=== PATIENT | male | born 1980 | race African-American/Black ===

== ENCOUNTER 2017-03-05 22:26 | Emergency (ER) | payer SELFPAY ==
[2017-03-06 00:50] LABS: BASO # 0.1 10^3/uL (0.0-0.2); BASO % 0.4 % (0.0-1.0); EOS # 0.4 10^3/uL (0.0-0.50); IMMATURE GRANULOCYTE # 0.1 10^3/uL (0-0); IMMATURE GRANULOCYTE % 0.4 % (0-0); LYMPH # 1.6 10^3/uL (1.5-4.5); LYMPH % 11.8 % (24.0-44.0); MEAN CORPUSCULAR HEMOGLOBIN 29.4 pg (27.0-33.0); MEAN CORPUSCULAR HGB CONC 33.7 g/dl (32.0-36.5); MEAN CORPUSCULAR VOLUME 87.3 fl (80.0-96.0); MONO # 1.5 10^3/uL (0.0-0.8); NEUTROPHILS # 9.7 10^3/uL (1.8-7.7); NEUTROPHILS % 73.4 % (36.0-66.0); PLATELET COUNT, AUTOMATED 283 10^3/uL (150-450); RED CELL DISTRIBUTION WIDTH 13.2 % (11.5-14.5); WHITE BLOOD COUNT 13.2 10^3/uL (4.0-10.0)
[2017-03-06 01:23] LABS: ANION GAP 8 MEQ/L (8-16); BLOOD UREA NITROGEN 10 MG/DL (7-18); CALCIUM LEVEL 8.7 MG/DL (8.5-10.1); CARBON DIOXIDE LEVEL 27 MEQ/L (21-32); CHLORIDE LEVEL 105 MEQ/L (98-107); CREATININE FOR GFR 0.91 MG/DL (0.70-1.30); GLOMERULAR FILTRATION RATE > 60.0 (>60); GLUCOSE, FASTING 115 MG/DL (70-105); POTASSIUM SERUM 3.7 MEQ/L (3.5-5.1); SODIUM LEVEL 140 MEQ/L (136-145)
[2017-03-06] MEDS: CEPHALEXIN 500 MG CAP PO ×2 (02:00→02:17)
[2017-03-06] MEDS: amLODIPine 5 MG TAB PO (02:17)
== END 2017-03-06 02:22 | disposition home or self-care (01) ==
LOC: M ED 22:26
DX: J02.0 Streptococcal pharyngitis (principal); I10 Essential (primary) hypertension
CPT/HCPCS: 82550

== ENCOUNTER 2017-03-11 13:24 | Inpatient (IN) | payer SELFPAY ==
[2017-03-11 14:11] LABS: APPEARANCE, URINE CLEAR (CLEAR); BACTERIA, URINE AUTO NEGATIVE (NEGATIVE); BILIRUBIN, URINE AUTO NEGATIVE (NEGATIVE); BLOOD, URINE BLOOD 3+ (NEGATIVE); COLOR, URINE YELLOW (YELLOW); GLUCOSE, URINE (UA) AUTO NEGATIVE (NEGATIVE); KETONE, URINE AUTO NEGATIVE (NEGATIVE); LEUKOCYTE ESTERASE, URINE AUTO NEGATIVE (NEGATIVE); NITRITE, URINE AUTO NEGATIVE (NEGATIVE); PROTEIN, URINE AUTO 2+ mg/dL (NEGATIVE); RBC, URINE AUTO 1 /HPF (0-3); SPECIFIC GRAVITY URINE AUTO 1.023 (1.002-1.035); SQUAMOUS EPITHELIAL CELL UR AU 0 /HPF (0-6); WBC, URINE AUTO 0 /HPF (0-3)
[2017-03-11] MEDS: NS 1,000 ML IV ×3 (14:15→22:11)
[2017-03-11 14:37] LABS: MYOGLOBIN SCREEN, URINE POSITIVE (NEGATIVE)
[2017-03-11 15:18] LABS: ANION GAP 4 MEQ/L (8-16); BLOOD UREA NITROGEN 11 MG/DL (7-18); CALCIUM LEVEL 8.8 MG/DL (8.5-10.1); CARBON DIOXIDE LEVEL 28 MEQ/L (21-32); CHLORIDE LEVEL 106 MEQ/L (98-107); CREATININE FOR GFR 0.67 MG/DL (0.70-1.30); GLOMERULAR FILTRATION RATE > 60.0 (>60); GLUCOSE, FASTING 99 MG/DL (70-105); SODIUM LEVEL 138 MEQ/L (136-145)
[2017-03-11 15:22] LABS: POTASSIUM SERUM 5.4 MEQ/L (3.5-5.1)
[2017-03-11 16:03] LABS: CPK CREATINE PHOSPHOKINASE 13110 U/L (39-308)
[2017-03-11 18:09] LABS: BASO % 0.2 % (0.0-1.0); EOS # 0.1 10^3/uL (0.0-0.50); EOS % 0.9 % (0.0-3.0); HEMATOCRIT 43.8 % (42.0-52.0); HEMOGLOBIN 14.4 g/dl (14.0-18.0); IMMATURE GRANULOCYTE # 0.1 10^3/uL (0-0); IMMATURE GRANULOCYTE % 0.6 % (0-0); LYMPH % 18.4 % (24.0-44.0); MEAN CORPUSCULAR HEMOGLOBIN 28.8 pg (27.0-33.0); MEAN CORPUSCULAR HGB CONC 32.9 g/dl (32.0-36.5); MEAN CORPUSCULAR VOLUME 87.6 fl (80.0-96.0); MONO % 8.9 % (0.0-5.0); NEUTROPHILS # 7.7 10^3/uL (1.8-7.7); PLATELET COUNT, AUTOMATED 355 10^3/uL (150-450); RED CELL DISTRIBUTION WIDTH 13.1 % (11.5-14.5); WHITE BLOOD COUNT 10.8 10^3/uL (4.0-10.0)
[2017-03-11 18:24] LABS: INR 0.97
[2017-03-11 18:25] LABS: PARTIAL THROMBOPLASTIN TIME 32.7 SECONDS (26.8-37.9)
[2017-03-11] MEDS ORDERED: MORPHINE 2 MG/ML 1ML SYRINGE IV (21:00)
[2017-03-11 21:21] LABS: REASON FOR REVIEW COMPREHENSIVE REVIEW; SLIDE REVIEW Report; SOURCE PERIPHERAL SMEAR
[2017-03-11 21:27] LABS: CONTROL LINE MONO INT CTR LINE PRESENT; MONO SCRN NEGATIVE (NEGATIVE)
[2017-03-11 21:27] LABS: FIBRINOGEN 410 MG/DL (221-452)
[2017-03-11 21:41] LABS: LDH LACTATE DEHYDROGENASE 1872 U/L (87-241)
[2017-03-11] MEDS: SENOKOT S TAB PO (22:09)
[2017-03-11] MEDS: CEPHALEXIN 500 MG CAP PO (22:09)
[2017-03-11] MEDS: HEPARIN SOD (PORCINE) 5000 UNITS/ML VIAL SC (22:10)
[2017-03-12] MEDS: NS 1,000 ML IV ×4 (03:15→20:09)
[2017-03-12 07:25] LABS: HEMATOCRIT 40.9 % (42.0-52.0); HEMOGLOBIN 13.4 g/dl (14.0-18.0); MEAN CORPUSCULAR HGB CONC 32.8 g/dl (32.0-36.5); MEAN CORPUSCULAR VOLUME 88.5 fl (80.0-96.0); PLATELET COUNT, AUTOMATED 329 10^3/uL (150-450); RED BLOOD COUNT 4.62 10^6/uL (4.30-6.10); RED CELL DISTRIBUTION WIDTH 13.1 % (11.5-14.5); WHITE BLOOD COUNT 10.1 10^3/uL (4.0-10.0)
[2017-03-12 07:50] LABS: ALBUMIN 3.1 GM/DL (3.2-5.2); ALBUMIN/GLOBULIN RATIO 0.82 (1.00-1.93); ALKALINE PHOSPHATASE 63 U/L (45-117); ALT/SGPT 185 U/L (12-78); ANION GAP 5 MEQ/L (8-16); AST/SGOT 445 U/L (7-37); BILIRUBIN,TOTAL 0.4 MG/DL (0.2-1.0); BLOOD UREA NITROGEN 8 MG/DL (7-18); CALCIUM LEVEL 8.1 MG/DL (8.5-10.1); CARBON DIOXIDE LEVEL 30 MEQ/L (21-32); CHLORIDE LEVEL 105 MEQ/L (98-107); CREATININE FOR GFR 0.63 MG/DL (0.70-1.30); GLOMERULAR FILTRATION RATE > 60.0 (>60); GLUCOSE, FASTING 112 MG/DL (70-105); MAGNESIUM LEVEL 2.2 MG/DL (1.8-2.4); POTASSIUM SERUM 4.7 MEQ/L (3.5-5.1); SODIUM LEVEL 140 MEQ/L (136-145); TOTAL PROTEIN 6.9 GM/DL (6.4-8.2)
[2017-03-12] MEDS: CEPHALEXIN 500 MG CAP PO ×2 (08:31→20:09)
[2017-03-12] MEDS: SENOKOT S TAB PO ×2 (08:31→20:01)
[2017-03-12] MEDS: HEPARIN SOD (PORCINE) 5000 UNITS/ML VIAL SC ×2 (08:32→20:09)
[2017-03-12 11:42] LABS: CPK CREATINE PHOSPHOKINASE 95400 U/L (39-308)
[2017-03-12] MEDS: amLODIPine 5 MG TAB PO (16:16)
[2017-03-12 19:05] LABS: POTASSIUM SERUM 4.2 MEQ/L (3.5-5.1)
[2017-03-12 22:05] LABS: CPK CREATINE PHOSPHOKINASE 94182 U/L (39-308)
[2017-03-13] MEDS: NS 1,000 ML IV ×5 (01:16→17:35)
[2017-03-13 06:16] LABS: HEMOGLOBIN 13.4 g/dl (14.0-18.0); MEAN CORPUSCULAR HEMOGLOBIN 29.1 pg (27.0-33.0); MEAN CORPUSCULAR HGB CONC 33.5 g/dl (32.0-36.5); PLATELET COUNT, AUTOMATED 325 10^3/uL (150-450)
[2017-03-13 07:17] LABS: ALKALINE PHOSPHATASE 57 U/L (45-117); ALT/SGPT 183 U/L (12-78); AST/SGOT 323 U/L (7-37); BILIRUBIN,TOTAL 0.3 MG/DL (0.2-1.0); BLOOD UREA NITROGEN 8 MG/DL (7-18); CALCIUM LEVEL 8.3 MG/DL (8.5-10.1); CARBON DIOXIDE LEVEL 26 MEQ/L (21-32); CHLORIDE LEVEL 106 MEQ/L (98-107); CREATININE FOR GFR 0.61 MG/DL (0.70-1.30); GLUCOSE, FASTING 111 MG/DL (70-105); MAGNESIUM LEVEL 2.1 MG/DL (1.8-2.4); POTASSIUM SERUM 4.4 MEQ/L (3.5-5.1); SODIUM LEVEL 140 MEQ/L (136-145); TOTAL PROTEIN 6.8 GM/DL (6.4-8.2)
[2017-03-13] MEDS: SENOKOT S TAB PO ×2 (07:32→20:00)
[2017-03-13 07:39] LABS: CPK CREATINE PHOSPHOKINASE 77825 U/L (39-308)
[2017-03-13 08:07] LABS: HAPTOGLOBIN 187 mg/dL (34-200)
[2017-03-13] MEDS: CEPHALEXIN 500 MG CAP PO ×2 (10:05→20:36)
[2017-03-13] MEDS: amLODIPine 5 MG TAB PO (10:07)
[2017-03-13] MEDS: HEPARIN SOD (PORCINE) 5000 UNITS/ML VIAL SC ×2 (10:07→20:36)
[2017-03-13 14:20] LABS: ANION GAP 8 MEQ/L (8-16)
[2017-03-13 14:21] LABS: ALBUMIN/GLOBULIN RATIO 0.79 (1.00-1.93)
[2017-03-13] MEDS: ACETAMINOPHEN TAB 650MG DOSE (2X325MG) PO (18:39)
[2017-03-13 18:40] LABS: POTASSIUM SERUM 4.5 MEQ/L (3.5-5.1)
[2017-03-13 21:25] LABS: CPK CREATINE PHOSPHOKINASE 48658 U/L (39-308)
[2017-03-14 06:14] LABS: HEMOGLOBIN 13.8 g/dl (14.0-18.0); MEAN CORPUSCULAR HEMOGLOBIN 29.1 pg (27.0-33.0); MEAN CORPUSCULAR HGB CONC 33.7 g/dl (32.0-36.5); MEAN CORPUSCULAR VOLUME 86.5 fl (80.0-96.0); PLATELET COUNT, AUTOMATED 345 10^3/uL (150-450); RED BLOOD COUNT 4.74 10^6/uL (4.30-6.10); RED CELL DISTRIBUTION WIDTH 12.8 % (11.5-14.5); WHITE BLOOD COUNT 10.8 10^3/uL (4.0-10.0)
[2017-03-14] MEDS: NS 1,000 ML IV ×4 (06:41→20:29)
[2017-03-14 06:54] LABS: ALBUMIN 3.2 GM/DL (3.2-5.2); ALBUMIN/GLOBULIN RATIO 0.82 (1.00-1.93); ALKALINE PHOSPHATASE 67 U/L (45-117); ALT/SGPT 181 U/L (12-78); ANION GAP 7 MEQ/L (8-16); AST/SGOT 211 U/L (7-37); BILIRUBIN,TOTAL 0.3 MG/DL (0.2-1.0); BLOOD UREA NITROGEN 9 MG/DL (7-18); CALCIUM LEVEL 7.9 MG/DL (8.5-10.1); CARBON DIOXIDE LEVEL 27 MEQ/L (21-32); CHLORIDE LEVEL 105 MEQ/L (98-107); CREATININE FOR GFR 0.65 MG/DL (0.70-1.30); GLOMERULAR FILTRATION RATE > 60.0 (>60); GLUCOSE, FASTING 135 MG/DL (70-105); MAGNESIUM LEVEL 2.1 MG/DL (1.8-2.4); POTASSIUM SERUM 4.1 MEQ/L (3.5-5.1); SODIUM LEVEL 139 MEQ/L (136-145); TOTAL PROTEIN 7.1 GM/DL (6.4-8.2)
[2017-03-14 07:28] LABS: CPK CREATINE PHOSPHOKINASE 29875 U/L (39-308)
[2017-03-14] MEDS: CEPHALEXIN 500 MG CAP PO ×2 (08:05→20:27)
[2017-03-14] MEDS: amLODIPine 5 MG TAB PO (08:05)
[2017-03-14] MEDS: SENOKOT S TAB PO ×2 (08:06→20:28)
[2017-03-14] MEDS: HEPARIN SOD (PORCINE) 5000 UNITS/ML VIAL SC ×2 (08:06→20:29)
[2017-03-15] MEDS: NS 1,000 ML IV ×4 (04:15→21:08)
[2017-03-15 06:18] LABS: HEMATOCRIT 39.4 % (42.0-52.0); MEAN CORPUSCULAR HEMOGLOBIN 28.8 pg (27.0-33.0); MEAN CORPUSCULAR VOLUME 87.2 fl (80.0-96.0); PLATELET COUNT, AUTOMATED 325 10^3/uL (150-450); RED BLOOD COUNT 4.52 10^6/uL (4.30-6.10); RED CELL DISTRIBUTION WIDTH 12.8 % (11.5-14.5); WHITE BLOOD COUNT 10.5 10^3/uL (4.0-10.0)
[2017-03-15 06:59] LABS: ALBUMIN 3.2 GM/DL (3.2-5.2); ALBUMIN/GLOBULIN RATIO 0.89 (1.00-1.93); ALKALINE PHOSPHATASE 65 U/L (45-117); ALT/SGPT 181 U/L (12-78); ANION GAP 8 MEQ/L (8-16); AST/SGOT 136 U/L (7-37); BILIRUBIN,TOTAL 0.2 MG/DL (0.2-1.0); BLOOD UREA NITROGEN 12 MG/DL (7-18); CALCIUM LEVEL 8.3 MG/DL (8.5-10.1); CARBON DIOXIDE LEVEL 27 MEQ/L (21-32); CHLORIDE LEVEL 105 MEQ/L (98-107); CPK CREATINE PHOSPHOKINASE 13273 U/L (39-308); CREATININE FOR GFR 0.65 MG/DL (0.70-1.30); GLOMERULAR FILTRATION RATE > 60.0 (>60); GLUCOSE, FASTING 132 MG/DL (70-105); POTASSIUM SERUM 3.8 MEQ/L (3.5-5.1); SODIUM LEVEL 140 MEQ/L (136-145); TOTAL PROTEIN 6.8 GM/DL (6.4-8.2)
[2017-03-15] MEDS: SENOKOT S TAB PO ×2 (07:37→21:00)
[2017-03-15] MEDS: HEPARIN SOD (PORCINE) 5000 UNITS/ML VIAL SC ×2 (07:38→21:00)
[2017-03-15] MEDS: CEPHALEXIN 500 MG CAP PO ×2 (09:27→21:06)
[2017-03-15] MEDS: amLODIPine 5 MG TAB PO (09:27)
[2017-03-16 06:19] LABS: HEMATOCRIT 40.2 % (42.0-52.0); HEMOGLOBIN 13.4 g/dl (14.0-18.0); MEAN CORPUSCULAR HGB CONC 33.3 g/dl (32.0-36.5); PLATELET COUNT, AUTOMATED 313 10^3/uL (150-450); RED BLOOD COUNT 4.62 10^6/uL (4.30-6.10); RED CELL DISTRIBUTION WIDTH 13.1 % (11.5-14.5); WHITE BLOOD COUNT 11.3 10^3/uL (4.0-10.0)
[2017-03-16 06:54] LABS: ALBUMIN 3.3 GM/DL (3.2-5.2); ALBUMIN/GLOBULIN RATIO 0.87 (1.00-1.93); ALKALINE PHOSPHATASE 61 U/L (45-117); ALT/SGPT 180 U/L (12-78); ANION GAP 7 MEQ/L (8-16); AST/SGOT 104 U/L (7-37); BILIRUBIN,TOTAL 0.3 MG/DL (0.2-1.0); BLOOD UREA NITROGEN 13 MG/DL (7-18); CALCIUM LEVEL 8.3 MG/DL (8.5-10.1); CARBON DIOXIDE LEVEL 27 MEQ/L (21-32); CHLORIDE LEVEL 107 MEQ/L (98-107); CPK CREATINE PHOSPHOKINASE 6899 U/L (39-308); CREATININE FOR GFR 0.63 MG/DL (0.70-1.30); GLOMERULAR FILTRATION RATE > 60.0 (>60); GLUCOSE, FASTING 111 MG/DL (70-105); MAGNESIUM LEVEL 2.2 MG/DL (1.8-2.4); SODIUM LEVEL 141 MEQ/L (136-145); TOTAL PROTEIN 7.1 GM/DL (6.4-8.2)
[2017-03-16] MEDS: SENOKOT S TAB PO ×2 (08:51→21:00)
[2017-03-16] MEDS: amLODIPine 5 MG TAB PO (08:51)
[2017-03-16] MEDS: CEPHALEXIN 500 MG CAP PO ×2 (08:51→21:39)
[2017-03-16] MEDS: HEPARIN SOD (PORCINE) 5000 UNITS/ML VIAL SC ×2 (08:52→21:00)
[2017-03-17 05:41] LABS: HEMATOCRIT 40.3 % (42.0-52.0); HEMOGLOBIN 13.5 g/dl (14.0-18.0); MEAN CORPUSCULAR HEMOGLOBIN 29.3 pg (27.0-33.0); MEAN CORPUSCULAR HGB CONC 33.5 g/dl (32.0-36.5); MEAN CORPUSCULAR VOLUME 87.4 fl (80.0-96.0); PLATELET COUNT, AUTOMATED 315 10^3/uL (150-450); RED BLOOD COUNT 4.61 10^6/uL (4.30-6.10); RED CELL DISTRIBUTION WIDTH 13.1 % (11.5-14.5); WHITE BLOOD COUNT 10.9 10^3/uL (4.0-10.0)
[2017-03-17 06:16] LABS: ALBUMIN 3.2 GM/DL (3.2-5.2); ALBUMIN/GLOBULIN RATIO 0.78 (1.00-1.93); ALKALINE PHOSPHATASE 64 U/L (45-117); ALT/SGPT 174 U/L (12-78); ANION GAP 7 MEQ/L (8-16); AST/SGOT 84 U/L (7-37); BILIRUBIN,TOTAL 0.4 MG/DL (0.2-1.0); BLOOD UREA NITROGEN 11 MG/DL (7-18); CALCIUM LEVEL 8.1 MG/DL (8.5-10.1); CARBON DIOXIDE LEVEL 28 MEQ/L (21-32); CHLORIDE LEVEL 106 MEQ/L (98-107); CPK CREATINE PHOSPHOKINASE 4641 U/L (39-308); CREATININE FOR GFR 0.72 MG/DL (0.70-1.30); GLOMERULAR FILTRATION RATE > 60.0 (>60); GLUCOSE, FASTING 115 MG/DL (70-105); MAGNESIUM LEVEL 2.2 MG/DL (1.8-2.4); POTASSIUM SERUM 4.4 MEQ/L (3.5-5.1); SODIUM LEVEL 141 MEQ/L (136-145); TOTAL PROTEIN 7.3 GM/DL (6.4-8.2)
[2017-03-17 07:13] LABS: FREE THYROXINE INDEX 3.9 % (1.4-3.8); T UPTAKE 36 % (33-40); THYROXINE (T4) 10.7 UG/DL (4.5-12.0)
[2017-03-17] MEDS: HEPARIN SOD (PORCINE) 5000 UNITS/ML VIAL SC (09:00)
[2017-03-17] MEDS: SENOKOT S TAB PO (09:00)
[2017-03-17] MEDS: amLODIPine 5 MG TAB PO (09:53)
== END 2017-03-17 10:14 | disposition home or self-care (01) | DRG 351 ==
LOC: M MSPAV 03-12 15:55 → M ED 13:24 → M ED INP 20:58
DX: M62.82 Rhabdomyolysis (principal); E87.5 Hyperkalemia; I10 Essential (primary) hypertension; E66.9 Obesity, unspecified; J02.0 Streptococcal pharyngitis; Z79.899 Other long term (current) drug therapy

== ENCOUNTER 2017-04-20 17:31 | Emergency (ER) | payer SELFPAY ==
[2017-04-20] MEDS: BENZONATATE 100 MG CAP PO (20:03)
== END 2017-04-20 20:10 | disposition home or self-care (01) ==
LOC: M ED 17:31
DX: J02.8 Acute pharyngitis due to other specified organisms (principal); I10 Essential (primary) hypertension
CPT/HCPCS: 87880

== ENCOUNTER 2017-11-18 20:37 | Inpatient (IN) | payer OTHER, SELFPAY ==
[2017-11-18] MEDS: NS 1,000 ML IV ×2 (21:29→23:38)
[2017-11-18 21:36] LABS: BASO % 0.2 % (0.0-1.0); EOS # 0.1 10^3/uL (0.0-0.50); EOS % 0.9 % (0.0-3.0); HEMATOCRIT 39.6 % (42.0-52.0); HEMOGLOBIN 13.1 g/dl (13.5-17.5); IMMATURE GRANULOCYTE % 0.3 % (0-3.0); LYMPH # 2.3 10^3/uL (1.5-4.5); MEAN CORPUSCULAR HEMOGLOBIN 29.4 pg (27.0-33.0); MEAN CORPUSCULAR HGB CONC 33.1 g/dl (32.0-36.5); MONO # 1.2 10^3/uL (0.0-0.8); MONO % 9.2 % (0.0-5.0); NEUTROPHILS # 9.2 10^3/uL (1.8-7.7); NEUTROPHILS % 71.4 % (36.0-66.0); PLATELET COUNT, AUTOMATED 331 10^3/uL (150-450); RED BLOOD COUNT 4.45 10^6/uL (4.30-6.10); RED CELL DISTRIBUTION WIDTH 12.6 % (11.5-14.5); WHITE BLOOD COUNT 12.9 10^3/uL (4.0-10.0)
[2017-11-18 21:51] LABS: APPEARANCE, URINE CLEAR (CLEAR); BACTERIA, URINE AUTO NEGATIVE (NEGATIVE); BILIRUBIN, URINE AUTO NEGATIVE (NEGATIVE); BLOOD, URINE BLOOD 3+ (NEGATIVE); COLOR, URINE YELLOW (YELLOW); GLUCOSE, URINE (UA) AUTO NEGATIVE (NEGATIVE); KETONE, URINE AUTO NEGATIVE (NEGATIVE); LEUKOCYTE ESTERASE, URINE AUTO NEGATIVE (NEGATIVE); NITRITE, URINE AUTO NEGATIVE (NEGATIVE); PROTEIN, URINE AUTO 2+ mg/dL (NEGATIVE); RBC, URINE AUTO 1 /HPF (0-3); SPECIFIC GRAVITY URINE AUTO 1.015 (1.002-1.035); SQUAMOUS EPITHELIAL CELL UR AU 0 /HPF (0-6); UROBILINOGEN, URINE AUTO 0.2 mg/dL (0.0-2.0); WBC, URINE AUTO 1 /HPF (0-3)
[2017-11-18 23:20] LABS: ANION GAP 7 MEQ/L (8-16); BLOOD UREA NITROGEN 10 MG/DL (7-18); CALCIUM LEVEL 8.7 MG/DL (8.5-10.1); CARBON DIOXIDE LEVEL 29 MEQ/L (21-32); CHLORIDE LEVEL 106 MEQ/L (98-107); CPK CREATINE PHOSPHOKINASE 95114 U/L (39-308); CREATININE FOR GFR 1.03 MG/DL (0.70-1.30); GLOMERULAR FILTRATION RATE > 60.0 (>60); GLUCOSE, FASTING 95 MG/DL (70-100); POTASSIUM SERUM 3.9 MEQ/L (3.5-5.1); SODIUM LEVEL 142 MEQ/L (136-145)
[2017-11-19] MEDS: NS 1,000 ML IV ×5 (00:29→20:20)
[2017-11-19 00:47] LABS: FREE T4 1.24 NG/DL (0.76-1.46); THYROID STIMULATING HORMONE 0.905 uIU/ML (0.358-3.740)
[2017-11-19] MEDS: ENOXAPARIN 40 MG/0.4 ML SYRINGE (J1650) SC (09:00)
[2017-11-19] MEDS ORDERED: BENZONATATE 100 MG CAP PO (16:30)
[2017-11-19] MEDS: amLODIPine 10 MG TAB PO (18:12)
[2017-11-19] MEDS: BENZONATATE 100 MG CAP PO (18:12)
[2017-11-19 18:17] LABS: CPK CREATINE PHOSPHOKINASE 41700 U/L (39-308)
[2017-11-20] MEDS: NS 1,000 ML IV ×4 (01:15→21:00)
[2017-11-20 07:50] LABS: HEMATOCRIT 41.6 % (42.0-52.0); HEMOGLOBIN 13.7 g/dl (13.5-17.5); MEAN CORPUSCULAR HEMOGLOBIN 29.1 pg (27.0-33.0); MEAN CORPUSCULAR HGB CONC 32.9 g/dl (32.0-36.5); MEAN CORPUSCULAR VOLUME 88.5 fl (80.0-96.0); PLATELET COUNT, AUTOMATED 323 10^3/uL (150-450); RED CELL DISTRIBUTION WIDTH 12.7 % (11.5-14.5); WHITE BLOOD COUNT 10.1 10^3/uL (4.0-10.0)
[2017-11-20] MEDS: BENZONATATE 100 MG CAP PO (09:15)
[2017-11-20] MEDS: amLODIPine 10 MG TAB PO (09:15)
[2017-11-20] MEDS: ENOXAPARIN 40 MG/0.4 ML SYRINGE (J1650) SC (09:15)
[2017-11-20 09:58] LABS: ALBUMIN 3.4 GM/DL (3.2-5.2); ALBUMIN/GLOBULIN RATIO 0.83 (1.00-1.93); ALKALINE PHOSPHATASE 65 U/L (45-117); ALT/SGPT 115 U/L (12-78); ANION GAP 7 MEQ/L (8-16); AST/SGOT 277 U/L (7-37); BILIRUBIN,TOTAL 0.4 MG/DL (0.2-1.0); BLOOD UREA NITROGEN 6 MG/DL (7-18); CALCIUM LEVEL 8.5 MG/DL (8.5-10.1); CARBON DIOXIDE LEVEL 27 MEQ/L (21-32); CHLORIDE LEVEL 108 MEQ/L (98-107); CPK CREATINE PHOSPHOKINASE 62200 U/L (39-308); CREATININE FOR GFR 0.68 MG/DL (0.70-1.30); GLOMERULAR FILTRATION RATE > 60.0 (>60); GLUCOSE, FASTING 109 MG/DL (70-100); POTASSIUM SERUM 4.1 MEQ/L (3.5-5.1); SODIUM LEVEL 142 MEQ/L (136-145); TOTAL PROTEIN 7.5 GM/DL (6.4-8.2)
[2017-11-20] MEDS: ACETAMINOPHEN 500 MG TAB PO (10:58)
[2017-11-20 14:17] LABS: ALDOLASE 1.9 U/L (3.3-10.3)
[2017-11-21] MEDS: NS 1,000 ML IV (05:35)
[2017-11-21 07:56] LABS: HEMOGLOBIN 14.2 g/dl (13.5-17.5); MEAN CORPUSCULAR HEMOGLOBIN 29.5 pg (27.0-33.0); MEAN CORPUSCULAR VOLUME 89.4 fl (80.0-96.0); PLATELET COUNT, AUTOMATED 324 10^3/uL (150-450); RED BLOOD COUNT 4.81 10^6/uL (4.30-6.10); RED CELL DISTRIBUTION WIDTH 12.8 % (11.5-14.5); WHITE BLOOD COUNT 10.6 10^3/uL (4.0-10.0)
[2017-11-21] MEDS: ENOXAPARIN 40 MG/0.4 ML SYRINGE (J1650) SC (08:39)
[2017-11-21] MEDS: amLODIPine 10 MG TAB PO (08:42)
[2017-11-21] MEDS: BENZONATATE 100 MG CAP PO (08:46)
[2017-11-21 10:50] LABS: ALBUMIN 3.2 GM/DL (3.2-5.2); ALBUMIN/GLOBULIN RATIO 0.76 (1.00-1.93); ALKALINE PHOSPHATASE 67 U/L (45-117); ALT/SGPT 120 U/L (12-78); ANION GAP 8 MEQ/L (8-16); AST/SGOT 207 U/L (7-37); BILIRUBIN,TOTAL 0.2 MG/DL (0.2-1.0); BLOOD UREA NITROGEN 7 MG/DL (7-18); CALCIUM LEVEL 8.4 MG/DL (8.5-10.1); CARBON DIOXIDE LEVEL 25 MEQ/L (21-32); CHLORIDE LEVEL 107 MEQ/L (98-107); CPK CREATINE PHOSPHOKINASE 49796 U/L (39-308); CREATININE FOR GFR 0.69 MG/DL (0.70-1.30); GLOMERULAR FILTRATION RATE > 60.0 (>60); GLUCOSE, FASTING 107 MG/DL (70-100); POTASSIUM SERUM 4.3 MEQ/L (3.5-5.1); SODIUM LEVEL 140 MEQ/L (136-145); TOTAL PROTEIN 7.4 GM/DL (6.4-8.2)
[2017-11-21 14:14] LABS: MYOGLOBIN URINE QUANTITATIVE 314 ng/mL (0-13)
== END 2017-11-21 18:24 | disposition home or self-care (01) | DRG 58 ==
LOC: M ED INP 11-19 00:18 → M ED 20:37 → M PED 11-19 01:04
PROVIDERS: Internal Medicine
DX: G72.89 Other specified myopathies (principal); I10 Essential (primary) hypertension; E02 Subclinical iodine-deficiency hypothyroidism; F17.220 Nicotine dependence, chewing tobacco, uncomplicated

== ENCOUNTER 2018-08-21 11:08 | Emergency (ER) | payer OTHER ==
[~2018-08-21] VITALS: Ht 172.7 cm; Wt 102.3 kg
[~2018-08-21 11:08] MED LIST: AMLO10TA5 PO; AMLO5TAB6 PO; BENZ-18 PO; CEPH500C PO; KEFL500C17 PO; NORV5TAB PO; PROAAER10 INH; TESS100C PO
[2018-08-21] MEDS ORDERED: AMLO10TA5 PO (11:30)
[2018-08-21 11:42] VITALS: BP 136/85
== END 2018-08-21 11:44 | disposition home or self-care (01) ==
LOC: M ED 11:08
DX: J02.8 Acute pharyngitis due to other specified organisms (principal); I10 Essential (primary) hypertension; Z20.828 Contact with and (suspected) exposure to other viral communicable diseases; G43.909 Migraine, unspecified, not intractable, without status migrainosus; F17.220 Nicotine dependence, chewing tobacco, uncomplicated; Z79.899 Other long term (current) drug therapy

== ENCOUNTER → 2018-09-22 | Outpatient (REF) | payer OTHER, MEDICAID ==
[2018-09-22 13:48] LABS: BASO % 0.6 % (0.0-1.0); EOS # 0.1 10^3/uL (0.0-0.50); EOS % 1.9 % (0.0-3.0); HEMATOCRIT 42.4 % (42.0-52.0); HEMOGLOBIN 13.6 g/dl (13.5-17.5); MEAN CORPUSCULAR HEMOGLOBIN 29.6 pg (27.0-33.0); MEAN CORPUSCULAR HGB CONC 32.1 g/dl (32.0-36.5); MEAN CORPUSCULAR VOLUME 92.2 fl (80.0-96.0); MONO # 0.6 10^3/uL (0.0-0.8); MONO % 9.1 % (0.0-5.0); NEUTROPHILS # 3.6 10^3/uL (1.8-7.7); NEUTROPHILS % 57.2 % (36.0-66.0); PLATELET COUNT, AUTOMATED 255 10^3/uL (150-450); WHITE BLOOD COUNT 6.4 10^3/uL (4.0-10.0)
[2018-09-22 14:08] LABS: HEMOGLOBIN A1c 6.4 %
[2018-09-22 14:13] LABS: ALBUMIN 4.1 GM/DL (3.2-5.2); ALT/SGPT 26 U/L (12-78); BILIRUBIN,TOTAL 0.3 MG/DL (0.2-1.0); BLOOD UREA NITROGEN 13 MG/DL (7-18); CALCIUM LEVEL 9.5 MG/DL (8.5-10.1); CARBON DIOXIDE LEVEL 29 MEQ/L (21-32); CHLORIDE LEVEL 108 MEQ/L (98-107); CHOLESTEROL LEVEL 167 MG/DL (<200); CHOLESTEROL RISK RATIO 5.964 (<5); CREATININE FOR GFR 0.96 MG/DL (0.70-1.30); FREE T4 1.21 NG/DL (0.76-1.46); GLOMERULAR FILTRATION RATE > 60.0 (>60); GLUCOSE, FASTING 115 MG/DL (70-100); HDL CHOLESTEROL 28 MG/DL (>40); LDL CHOLESTEROL 63 MG/DL (<100); NON-HDL-C 139 MG/DL; POTASSIUM SERUM 4.2 MEQ/L (3.5-5.1); SODIUM LEVEL 144 MEQ/L (136-145); TOTAL 25(OH) VITAMIN D 19.5 NG/ML (30.0-100.0); TOTAL PROTEIN 7.2 GM/DL (6.4-8.2); TRIGLYCERIDES LEVEL 378 MG/DL (<150)
== END ==
LOC: M LAB REF 13:13
PROVIDERS: ATTEND Nurse Practitioner Family
DX: Z13.9 Encounter for screening, unspecified (principal)

== ENCOUNTER → 2019-03-19 | Outpatient (REF) | payer OTHER, MEDICAID ==
[2019-03-19 18:14] LABS: BASO % 0.6 % (0.0-1.0); EOS # 0.1 10^3/uL (0.0-0.5); EOS % 1.4 % (0.0-3.0); HEMATOCRIT 41.4 % (42.0-52.0); HEMOGLOBIN 13.4 g/dl (13.5-17.5); LYMPH # 1.7 10^3/uL (1.5-5.0); LYMPH % 23.9 % (24.0-44.0); MEAN CORPUSCULAR HEMOGLOBIN 29.6 pg (27.0-33.0); MEAN CORPUSCULAR HGB CONC 32.4 g/dl (32.0-36.5); MEAN CORPUSCULAR VOLUME 91.4 fl (80.0-96.0); MONO # 0.7 10^3/uL (0.0-0.8); MONO % 10.3 % (0.0-5.0); NEUTROPHILS # 4.6 10^3/uL (1.5-8.5); NEUTROPHILS % 63.5 % (36.0-66.0); PLATELET COUNT, AUTOMATED 287 10^3/uL (150-450); RED BLOOD COUNT 4.53 10^6/uL (4.30-6.10); WHITE BLOOD COUNT 7.2 10^3/uL (4.0-10.0)
[2019-03-19 18:23] LABS: ALT/SGPT 30 U/L (12-78); BILIRUBIN,TOTAL 0.4 MG/DL (0.2-1.0); BLOOD UREA NITROGEN 13 MG/DL (7-18); CALCIUM LEVEL 8.8 MG/DL (8.5-10.1); CARBON DIOXIDE LEVEL 27 MEQ/L (21-32); CHLORIDE LEVEL 106 MEQ/L (98-107); CHOLESTEROL LEVEL 169 MG/DL (<200); CHOLESTEROL RISK RATIO 7.347 (<5); CREATININE FOR GFR 0.89 MG/DL (0.70-1.30); GLOMERULAR FILTRATION RATE > 60.0 (>60); GLUCOSE, FASTING 119 MG/DL (70-100); HDL CHOLESTEROL 23 MG/DL (>40); NON-HDL-C 146 MG/DL; POTASSIUM SERUM 4.5 MEQ/L (3.5-5.1); SODIUM LEVEL 139 MEQ/L (136-145); TOTAL PROTEIN 7.5 GM/DL (6.4-8.2); TRIGLYCERIDES LEVEL 491 MG/DL (<150)
[2019-03-19 18:29] LABS: HEMOGLOBIN A1c 6.5 %
== END ==
LOC: M LAB REF 16:41
PROVIDERS: ATTEND Nurse Practitioner Family
DX: I10 Essential (primary) hypertension (principal); R73.03 Prediabetes

== ENCOUNTER 2019-04-21 14:01 | Inpatient (IN) | payer MEDICAID, OTHER ==
[~2019-04-21] VITALS: Ht 172.7 cm; Wt 105.2 kg
[2019-04-21] MEDS ORDERED: METO1TAB32 PO (14:10)
[2019-04-21 14:50] LABS: HEMATOCRIT 43.8 % (42.0-52.0); MEAN CORPUSCULAR HEMOGLOBIN 29.2 pg (27.0-33.0); MEAN CORPUSCULAR HGB CONC 34.2 g/dl (32.0-36.5); MEAN CORPUSCULAR VOLUME 85.4 fl (80.0-96.0); PLATELET COUNT, AUTOMATED 275 10^3/uL (150-450); RED BLOOD COUNT 5.13 10^6/uL (4.30-6.10); WHITE BLOOD COUNT 8.8 10^3/uL (4.0-10.0)
[2019-04-21] MEDS ORDERED: NS 1,000 ML IV ONE ×2 (16:15)
[2019-04-21 16:29] LABS: BLOOD UREA NITROGEN 11 MG/DL (7-18); CALCIUM LEVEL 8.6 MG/DL (8.5-10.1); CARBON DIOXIDE LEVEL 31 MEQ/L (21-32); CHLORIDE LEVEL 104 MEQ/L (98-107); CPK CREATINE PHOSPHOKINASE 31751 U/L (39-308); GLOMERULAR FILTRATION RATE > 60.0 (>60); GLUCOSE, FASTING 106 MG/DL (70-100); POTASSIUM SERUM 3.1 MEQ/L (3.5-5.1); SODIUM LEVEL 142 MEQ/L (136-145)
[2019-04-21] MEDS ORDERED: POTASSIUM CHLORIDE 10 MEQ SR TABLET PO ONE (18:00)
[2019-04-21] MEDS ORDERED: ACETAMINOPHEN TAB 650MG DOSE (2X325MG) PO PRN (18:00)
[2019-04-21] MEDS ORDERED: AMLO10TA5 PO (18:01)
--- NOTE | 2019-04-21 18:05 | HPEPDOC ---
General Date of Admission 04/21/19 Date of Service: Apr 22, 2019 Chief Complaint The patient is a 38-year-old male admitted with a reason for visit of Abdominal Pain. Source: Patient Exam Limitations: No limitations (one day) Severity: Moderate Associated Symptoms: Other (, muscle aches and pains) History of Present Illness This is a 38 years old male with a past medical history of hypertension on amlodipine and metoprolol. History of migraine headache. 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 Patient again presented with the chief complaints of muscle aches and pains, weakness, difficulty walking, flank pains since one day. As per patient, his both and child were sick with flu recently and often when he developed his symptom. Patient is being admitted for observation and IV hydration and we'll also request a flu screening Home Medications Scheduled Amlodipine Besylate (Amlodipine Besylate) 10 Mg Tablet, 10 MG PO DAILY, (Reported) Metoprolol Succinate (Metoprolol Succinate) 25 Mg Tab.er.24h, 25 MG PO DAILY, (Reported) Allergies Coded Allergies: No Known Allergies (Verified , 05/18/08) Past Medical History Medical History Hypertension, migraine, unspecified myopathy with rhabdomyolysis Surgical History History of surgery for cryptorchidism Social History * Smoker: Denies Alcohol: Denies Drugs: denies A-FIB/CHADSVASC A-FIB History Current/History of A-Fib/PAF?: No Review of Systems Constitutional: Reports: Chills, Weakness Eyes: Reports: Pain ENT: Denies: Head Aches, Ear Pain, Dysphagia, Sinus Congestion, Post Nasal Drip, Sore Throat, Epistaxis, Other Symptoms Skin: Denies: Rash, Lesions, Jaundice, Bruising, Itching, Dry, Breakdown, Nail Changes, Other Pulmonary: Denies: Dyspnea, Cough, Pleuritic Chest Pain, Other Symptoms Cardiovascular: Denies: Chest Pain, Palpitations, Orthopnea, Paroxysmal Noc. Dyspnea, Edema, Lt Headedness, Other Symptoms Gastrointestinal: Denies: Nausea, Vomiting, Abdominal Pain, Diarrhea, Constipation, Melena, Hematochezia, Other Symptoms Genitourinary: Denies: Dysuria, Frequency, Incontinence, Hematuria, Retention, Other Symptoms Hematologic: Denies: Bruising, Bleeding Excessively, Petecchia, Purpura, Enlarged Lymph Nodes, Other Hematologic Endocrine: Denies: Polydipsia, Polyphagia, Polyuria, Heat Intolerance, Cold Intolerance, Other Endocrine Sx Musculoskeletal: Reports: Muscle Pain Neurological: Denies: Weakness, Numbness, Incoordination, Change in speech, Confusion, Seizures, Other Symptoms Psych: Denies: Mood Normal, Anxiety, Depression, Memory Issues, Thoughts of Self Harm, Anger, Thoughts of Harming Other, Other Psych Physical Examination General Exam: Positive: Alert, Cooperative Eye Exam: Positive: PERRLA, Conjunctiva & lids normal ENT Exam: Positive: Atraumatic, Mucous membr. moist/pink Neck Exam: Positive: Supple Chest Exam: Positive: Clear to auscultation Heart Exam: Positive: Rate Normal, Normal S1, Normal S2 Abdomen Exam: Positive: Normal bowel sounds, Soft Extremity Exam: Positive: Normal pulses Skin Exam: Positive: Nl turgor and temperature Neuro Exam: Positive: Strength at 5/5 X4 ext, Cranial Nerves 3-12 NL Psych Exam: Positive: Anxiety, Oriented x 3 Vital Signs Vital Signs Date Time Temp Pulse Resp B/P (MAP) Pulse Ox O2 Delivery O2 Flow Rate FiO2 04/21/19 16:48 04/21/19 14:02 97.8 121 22 94 Room Air Laboratory Data Labs 24H Laboratory Tests 2 04/21/19 14:36: Nucleated Red Blood Cells % (auto) 0.0, Anion Gap 7L, Glomerular Filtration Rate > 60.0, Calcium Level 8.6, Total Creatine Kinase [id number] 04/21/19 14:39: Urine Color YELLOW, Urine Appearance CLEAR, Urine pH 6.0, Urine Specific [place] 1.013, Urine Protein 2+H, Urine Glucose (UA) NEGATIVE, Urine Ketones NEGATIVE, Urine Blood 3+H, Urine Nitrite NEGATIVE, Urine Bilirubin NEGATIVE, Urine Urobilinogen 0.2, Urine Leukocyte Esterase NEGATIVE, Urine WBC (Auto) 1, Urine RBC (Auto) 2, Urine Hyaline Casts (Auto) 0, Urine Bacteria (Auto) NEGATIVE, Urine Squamous Epithelial Cells 0, Urine Mucus (Auto) SMALL, Urine Sperm (Auto) CBC/BMP Laboratory Tests 04/21/19 14:36 Problems (1) Rhabdomyolysis Status: Acute Problem Text: Patient has a history of nonspecific myopathies with the rhabdomyolysis under stressful conditions. Will admit patient for observation. In the meantime IV fluids normal saline with KCl 20 mEq 850 mL per hour Repeat labs including CPK in a.m. DVT prophylaxis with antiembolic stockings Diet regular Activity as tolerated 's discharge. Patient can follow-up with his speech scientist at [facility] in [place] (2) Hypokalemia Status: Resolved Problem Text: Potassium is been added to IV fluids . Also, will give KCl 40 mg by mouth 1 dose Stat magnesium level has been ordered and will be corrected if his low (3) Hypertension Status: Acute Problem Text: Continue Norvasc and metoprolol as per home dosage Blood pressure is under well control Plan / VTE VTE Prophylaxis Ordered?: Yes RENETTA GREEN MD Apr 21, 2019 18:05
[2019-04-21] MEDS: KCL 20MEQ in NS 1000ML 1,000 ML IV SCH (18:31)
[2019-04-21 19:03] LABS: INFLUENZA A AMPLIFICATION NEGATIVE (NEGATIVE); INFLUENZA B AMPLIFICATION POSITIVE (NEGATIVE)
[2019-04-21 20:03] VITALS: BP 160/114
[2019-04-21] MEDS: OSELTAMIVIR PHOSPHATE 75 MG CAP (TAMIFLU) PO SCH (20:51)
[2019-04-21] MEDS ORDERED: OSELTAMIVIR PHOSPHATE 75 MG CAP (TAMIFLU) PO SCH (21:00)
[2019-04-21 21:29] VITALS: BP 139/98
[2019-04-22] MEDS: KCL 20MEQ in NS 1000ML 1,000 ML IV SCH ×4 (01:38→19:13)
[2019-04-22 07:08] LABS: HEMATOCRIT 42.3 % (42.0-52.0); HEMOGLOBIN 13.8 g/dl (13.5-17.5); MEAN CORPUSCULAR HEMOGLOBIN 28.8 pg (27.0-33.0); MEAN CORPUSCULAR HGB CONC 32.6 g/dl (32.0-36.5); MEAN CORPUSCULAR VOLUME 88.1 fl (80.0-96.0); PLATELET COUNT, AUTOMATED 244 10^3/uL (150-450); WHITE BLOOD COUNT 8.4 10^3/uL (4.0-10.0)
[2019-04-22 09:17] VITALS: BP 139/97
[2019-04-22 09:38] LABS: ALBUMIN 2.9 GM/DL (3.2-5.2); ALT/SGPT 65 U/L (12-78); BILIRUBIN,TOTAL 0.4 MG/DL (0.2-1.0); BLOOD UREA NITROGEN 11 MG/DL (7-18); CALCIUM LEVEL 7.3 MG/DL (8.5-10.1); CARBON DIOXIDE LEVEL 22 MEQ/L (21-32); CHLORIDE LEVEL 111 MEQ/L (98-107); CPK CREATINE PHOSPHOKINASE 56900 U/L (39-308); CREATININE FOR GFR 0.85 MG/DL (0.70-1.30); GLOMERULAR FILTRATION RATE > 60.0 (>60); GLUCOSE, FASTING 127 MG/DL (70-100); POTASSIUM SERUM 4.1 MEQ/L (3.5-5.1); SODIUM LEVEL 143 MEQ/L (136-145); TOTAL PROTEIN 6.8 GM/DL (6.4-8.2)
[2019-04-22] MEDS: OSELTAMIVIR PHOSPHATE 75 MG CAP (TAMIFLU) PO SCH ×2 (11:04→22:08)
[2019-04-22] MEDS: amLODIPine 10 MG TAB PO SCH (11:04)
[2019-04-22] MEDS: METOPROLOL SUCC *XL* 25MG TAB (TopROL *XL*) PO SCH (11:05)
[2019-04-22 11:10] VITALS: BP 139/97
--- NOTE | 2019-04-22 12:39 | IPNPDOC ---
Subjective Date Seen The patient was seen on 04/22/19. Subjective Chief Complaint/HPI Patient noticed dark color urine this morning, but muscle aches and pains are slowly resolving. Also patient was conformed for influenza B virus General: Reports: Fatigue, Malaise; Denies: ROS Unobtainable, Chills, Night Sweats, Normal Appetite, Other Symptoms Constitutional: Denies: Chills, Fever, Malaise, Night Sweats, Weakness, Fatigue, Weight Loss, Lethargy, Other Pulmonary: Denies: Dyspnea, Cough, Pleuritic Chest Pain, Other Symptoms Cardiovascular: Denies: Chest Pain, Palpitations, Orthopnea, Paroxysmal Noc. Dyspnea, Edema, Lt Headedness, Other Symptoms Gastrointestinal: Denies: Nausea, Vomiting, Abdominal Pain, Diarrhea, Constipation, Melena, Hematochezia, Other Symptoms Endocrine: Denies: Polydipsia, Polyphagia, Polyuria, Heat Intolerance, Cold Intolerance, Other Endocrine Sx Musculoskeletal: Denies: Neck Pain, Back Pain, Shoulder Pain, Arm Pain, Hand Pain, Leg Pain, Foot Pain, Joint Pain, Muscle Pain, Spasms, Other Symptoms Neurological: Denies: Weakness, Numbness, Incoordination, Change in speech, Confusion, Seizures, Other Symptoms Objective Physical Examination ENT Exam: Positive: Atraumatic, Mucous membr. moist/pink Neck Exam: Positive: Supple Chest Exam: Positive: Clear to auscultation Heart Exam: Positive: Rate Normal, Normal S1, Normal S2 Abdomen Exam: Positive: Normal bowel sounds, Soft Extremity Exam: Positive: Normal pulses Skin Exam: Positive: Nl turgor and temperature Neuro Exam: Positive: Strength at 5/5 X4 ext, Cranial Nerves 3-12 NL Assessment /Plan Problems (1) Rhabdomyolysis Status: Acute Problem Text: Patient's CPK was 56,900 today. Repeat tea color urine Most likely washout of myoglobin with IV hydration Will increase IV fluids to normal saline 200 mL per hour with KCl 20 mEq in each later Patient also was encouraged to increase oral hydration to prevent tubular occlusion by myoglobin CBC, CMP and CPK in a.m. (2) Influenza B Status: Acute Problem Text: Patient has been started on Tamiflu 75 mg by mouth twice a day Droplet isolation , Tylenol when necessary (3) Hypokalemia Status: Resolved (4) Hypertension Status: Acute Problem Text: Continue home meds Plan/VTE VTE Prophylaxis Ordered?: Yes VS, I&O, 24H, Fishbone Vital Signs/I&O Vital Signs Date Time Temp Pulse Resp B/P (MAP) Pulse Ox O2 Delivery O2 Flow Rate FiO2 04/22/19 11:10 98.1 26 139/97 94 Room Air 04/22/19 11:05 100 I&O- Last 24 Hours up to 6 AM 04/22/19 06:00 Intake Total 1340 ml Output Total 250 ml Balance 1090 ml Laboratory Data 24H LABS Laboratory Tests 2 04/21/19 14:36: Nucleated Red Blood Cells % (auto) 0.0, Anion Gap 7L, Glomerular Filtration Rate > 60.0, Calcium Level 8.6, Magnesium Level 2.0, Total Creatine Kinase [id number] 04/21/19 14:39: Urine Color YELLOW, Urine Appearance CLEAR, Urine pH 6.0, Urine Specific [place] 1.013, Urine Protein 2+H, Urine Glucose (UA) NEGATIVE, Urine Ketones NEGATIVE, Urine Blood 3+H, Urine Nitrite NEGATIVE, Urine Bilirubin NEGATIVE, Urine Urobilinogen 0.2, Urine Leukocyte Esterase NEGATIVE, Urine WBC (Auto) 1, Urine RBC (Auto) 2, Urine Hyaline Casts (Auto) 0, Urine Bacteria (Auto) NEGATIVE, Urine Squamous Epithelial Cells 0, Urine Mucus (Auto) SMALL, Urine Sperm (Auto) 04/21/19 17:59: Influenza Type A (RT-PCR) NEGATIVE, Influenza Type B (RT-PCR) POSITIVEH 04/22/19 06:43: Nucleated Red Blood Cells % (auto) 0.0, Anion Gap 10, Glomerular Filtration Rate > 60.0, Calcium Level 7.3#L, Total Creatine Kinase 43235#H, Total Bilirubin 0.4, Aspartate Amino Transf (AST/SGOT) 229H, Alanine Aminotransferase (ALT/SGPT) 65, Alkaline Phosphatase 57, Total Protein 6.8, Albumin 2.9L, Albumin/Globulin Ratio 0.74L CBC/BMP Laboratory Tests 04/21/19 14:36 04/22/19 06:43 RENETTA GREEN MD Apr 22, 2019 12:39
[2019-04-22 14:00] VITALS: BP 134/79
[2019-04-22 22:00] VITALS: BP 135/98
[2019-04-23] MEDS: KCL 20MEQ in NS 1000ML 1,000 ML IV SCH ×5 (00:08→21:53)
[2019-04-23 05:56] VITALS: BP 140/95
[2019-04-23 07:24] LABS: BASO % 0.3 % (0.0-1.0); EOS # 0.1 10^3/uL (0.0-0.5); EOS % 0.8 % (0.0-3.0); HEMATOCRIT 42.2 % (42.0-52.0); HEMOGLOBIN 13.9 g/dl (13.5-17.5); LYMPH % 18.9 % (24.0-44.0); MEAN CORPUSCULAR HEMOGLOBIN 28.7 pg (27.0-33.0); MEAN CORPUSCULAR HGB CONC 32.9 g/dl (32.0-36.5); MEAN CORPUSCULAR VOLUME 87.2 fl (80.0-96.0); MONO # 0.8 10^3/uL (0.0-0.8); MONO % 7.3 % (0.0-5.0); NEUTROPHILS # 7.7 10^3/uL (1.5-8.5); NEUTROPHILS % 72.3 % (36.0-66.0); PLATELET COUNT, AUTOMATED 258 10^3/uL (150-450); RED BLOOD COUNT 4.84 10^6/uL (4.30-6.10); WHITE BLOOD COUNT 10.7 10^3/uL (4.0-10.0)
[2019-04-23 09:52] LABS: ALT/SGPT 132 U/L (12-78); BILIRUBIN,TOTAL 0.6 MG/DL (0.2-1.0); BLOOD UREA NITROGEN 11 MG/DL (7-18); CALCIUM LEVEL 7.1 MG/DL (8.5-10.1); CARBON DIOXIDE LEVEL 25 MEQ/L (21-32); CHLORIDE LEVEL 107 MEQ/L (98-107); CPK CREATINE PHOSPHOKINASE 187400 U/L (39-308); CREATININE FOR GFR 0.77 MG/DL (0.70-1.30); GLOMERULAR FILTRATION RATE > 60.0 (>60); GLUCOSE, FASTING 106 MG/DL (70-100); POTASSIUM SERUM 4.4 MEQ/L (3.5-5.1); SODIUM LEVEL 138 MEQ/L (136-145); TOTAL PROTEIN 6.6 GM/DL (6.4-8.2)
[2019-04-23] MEDS: OSELTAMIVIR PHOSPHATE 75 MG CAP (TAMIFLU) PO SCH ×2 (09:59→20:31)
[2019-04-23] MEDS: amLODIPine 10 MG TAB PO SCH (10:00)
[2019-04-23] MEDS: METOPROLOL SUCC *XL* 25MG TAB (TopROL *XL*) PO SCH (10:00)
--- NOTE | 2019-04-23 11:40 | IPNPDOC ---
Subjective Date Seen The patient was seen on 04/23/19. Subjective Chief Complaint/HPI Patient offers no new complaints, is stable. His CPK is still very high General: Denies: ROS Unobtainable, Chills, Night Sweats, Fatigue, Malaise, Normal Appetite, Other Symptoms Constitutional: Denies: Chills, Fever, Malaise, Night Sweats, Weakness, Fatigue, Weight Loss, Lethargy, Other Skin: Denies: Rash, Lesions, Jaundice, Bruising, Itching, Dry, Breakdown, Nail Changes, Other Pulmonary: Denies: Dyspnea, Cough, Pleuritic Chest Pain, Other Symptoms Cardiovascular: Denies: Chest Pain, Palpitations, Orthopnea, Paroxysmal Noc. Dyspnea, Edema, Lt Headedness, Other Symptoms Gastrointestinal: Denies: Nausea, Vomiting, Abdominal Pain, Diarrhea, Constipation, Melena, Hematochezia, Other Symptoms Musculoskeletal: Denies: Neck Pain, Back Pain, Shoulder Pain, Arm Pain, Hand Pain, Leg Pain, Foot Pain, Joint Pain, Muscle Pain, Spasms, Other Symptoms Neurological: Denies: Weakness, Numbness, Incoordination, Change in speech, Confusion, Seizures, Other Symptoms Objective Physical Examination ENT Exam: Positive: Atraumatic, Mucous membr. moist/pink Neck Exam: Positive: Supple Chest Exam: Positive: Clear to auscultation Heart Exam: Positive: Rate Normal, Normal S1, Normal S2 Abdomen Exam: Positive: Normal bowel sounds, Soft Extremity Exam: Positive: Normal pulses Skin Exam: Positive: Nl turgor and temperature Assessment /Plan Problems (1) Rhabdomyolysis Status: Acute Problem Text: CPK today are 18 [phone] and the urine is still Tea collar Continue IV hydration with normal saline 200 mL per hour Considering nonspecific olaf myopathy. Will give a trial of by mouth prednisone as well Patient also was encouraged to increase oral hydration to prevent tubular occlusion by myoglobin Repeat labs in a.m. (2) Influenza B Status: Acute Problem Text: She is completely asymptomatic at this time Will continue Tamiflu 75 mg by mouth twice a day for total 5 days Continue droplet isolation (3) Hypokalemia Status: Resolved Problem Text: CMP is still pending, if the potassium is low, will correct accordingly (4) Hypertension Status: Acute Problem Text: Continue home meds Plan/VTE VTE Prophylaxis Ordered?: Yes VS, I&O, 24H, Fishbone Vital Signs/I&O Vital Signs Date Time Temp Pulse Resp B/P (MAP) Pulse Ox O2 Delivery O2 Flow Rate FiO2 04/23/19 10:00 99 140/95 04/23/19 05:56 97.0 20 92 Room Air I&O- Last 24 Hours up to 6 AM 04/23/19 06:00 Intake Total 3380 ml Output Total 3300 ml Balance 80 ml Laboratory Data 24H LABS Laboratory Tests 2 04/23/19 06:59: Immature Granulocyte % (Auto) 0.4, Neutrophils (%) (Auto) 72.3H, Lymphocytes (%) (Auto) 18.9L, Monocytes (%) (Auto) 7.3H, Eosinophils (%) (Auto) 0.8, Basophils (%) (Auto) 0.3, Neutrophils # (Auto) 7.7, Lymphocytes # (Auto) 2.0, Monocytes # (Auto) 0.8, Eosinophils # (Auto) 0.1, Basophils # (Auto) 0.0, Nucleated Red Blo od Cells % (auto) 0.0, Anion Gap 6L, Glomerular Filtration Rate > 60.0, Calcium Level 7.1L, Total Bilirubin 0.6, Aspartate Amino Transf (AST/SGOT) 654H, Alanine Aminotransferase (ALT/SGPT) 132H, Alkaline Phosphatase 51, Total Creatine Kinase 474822#H, Total Protein 6.6, Albumin 3.0L, Albumin/Globulin Ratio 0.83L CBC/BMP Laboratory Tests 04/23/19 06:59 RENETTA GREEN MD Apr 23, 2019 11:40
[2019-04-23 14:00] VITALS: BP 139/76
[2019-04-23] MEDS: predniSONE 10 MG TAB PO SCH (14:15)
[2019-04-23 22:00] VITALS: BP 152/108
[2019-04-24] MEDS: KCL 20MEQ in NS 1000ML 1,000 ML IV SCH ×2 (02:21→05:59)
[2019-04-24 06:00] VITALS: BP 132/83
[2019-04-24 07:09] LABS: BASO % 0.2 % (0.0-1.0); EOS # 0.1 10^3/uL (0.0-0.5); EOS % 0.5 % (0.0-3.0); HEMATOCRIT 43.9 % (42.0-52.0); HEMOGLOBIN 14.6 g/dl (13.5-17.5); LYMPH # 1.9 10^3/uL (1.5-5.0); LYMPH % 14.7 % (24.0-44.0); MEAN CORPUSCULAR HGB CONC 33.3 g/dl (32.0-36.5); MEAN CORPUSCULAR VOLUME 87.1 fl (80.0-96.0); MONO # 0.8 10^3/uL (0.0-0.8); MONO % 6.2 % (0.0-5.0); NEUTROPHILS # 10.3 10^3/uL (1.5-8.5); NEUTROPHILS % 77.9 % (36.0-66.0); PLATELET COUNT, AUTOMATED 287 10^3/uL (150-450); RED BLOOD COUNT 5.04 10^6/uL (4.30-6.10); WHITE BLOOD COUNT 13.2 10^3/uL (4.0-10.0)
[2019-04-24] MEDS: predniSONE 10 MG TAB PO SCH (07:58)
[2019-04-24] MEDS: OSELTAMIVIR PHOSPHATE 75 MG CAP (TAMIFLU) PO SCH ×2 (07:58→20:34)
[2019-04-24] MEDS: METOPROLOL SUCC *XL* 25MG TAB (TopROL *XL*) PO SCH (07:58)
[2019-04-24] MEDS: amLODIPine 10 MG TAB PO SCH (07:58)
[2019-04-24 09:40] LABS: ALT/SGPT 222 U/L (12-78); BILIRUBIN,TOTAL 0.4 MG/DL (0.2-1.0); BLOOD UREA NITROGEN 12 MG/DL (7-18); CALCIUM LEVEL 7.6 MG/DL (8.5-10.1); CARBON DIOXIDE LEVEL 23 MEQ/L (21-32); CHLORIDE LEVEL 110 MEQ/L (98-107); CPK CREATINE PHOSPHOKINASE 281500 U/L (39-308); CREATININE FOR GFR 0.66 MG/DL (0.70-1.30); GLOMERULAR FILTRATION RATE > 60.0 (>60); GLUCOSE, FASTING 138 MG/DL (70-100); SODIUM LEVEL 140 MEQ/L (136-145)
[2019-04-24] MEDS: NS 1,000 ML IV SCH ×3 (10:49→23:00)
--- NOTE | 2019-04-24 11:25 | IPNPDOC ---
Subjective Date Seen The patient was seen on 04/24/19. Subjective Chief Complaint/HPI Patient is decreased pain in his body, but still has the dark urine, no abdominal pain, no nausea, vomiting or fever General: Denies: ROS Unobtainable, Chills, Night Sweats, Fatigue, Malaise, Normal Appetite, Other Symptoms Constitutional: Denies: Chills, Fever, Malaise, Night Sweats, Weakness, Fatig ue, Weight Loss, Lethargy, Other Pulmonary: Denies: Dyspnea, Cough, Pleuritic Chest Pain, Other Symptoms Cardiovascular: Denies: Chest Pain, Palpitations, Orthopnea, Paroxysmal Noc. Dyspnea, Edema, Lt Headedness, Other Symptoms Gastrointestinal: Denies: Nausea, Vomiting, Abdominal Pain, Diarrhea, Constipation, Melena, Hematochezia, Other Symptoms Musculoskeletal: Denies: Neck Pain, Back Pain, Shoulder Pain, Arm Pain, Hand Pain, Leg Pain, Foot Pain, Joint Pain, Muscle Pain, Spasms, Other Symptoms Neurological: Denies: Weakness, Numbness, Incoordination, Change in speech, Confusion, Seizures, Other Symptoms Objective Physical Examination ENT Exam: Positive: Atraumatic, Mucous membr. moist/pink Neck Exam: Positive: Supple Chest Exam: Positive: Clear to auscultation Heart Exam: Positive: Rate Normal, Normal S1, Normal S2 Abdomen Exam: Positive: Normal bowel sounds, Soft Extremity Exam: Positive: Normal pulses Skin Exam: Positive: Nl turgor and temperature Assessment /Plan Problems (1) Rhabdomyolysis Status: Acute Problem Text: His CPKs are 471316 today, which are more increased since yesterday. His urine is still reddish color Will change IV fluid to normal saline 850 mL per hour, will continue prednisone by mouth as trial for is on nonspecific myopathy Patient also was encouraged to increase oral hydration to prevent tubular occlusion by myoglobin . We'll repeat labs in a.m. patient is symptomatic, feeling better. Hopefully, they will start decreasing tomorrow after peaking (2) Influenza B Status: Acute Problem Text: She is completely asymptomatic at this time Will continue Tamiflu till tomorrow and DC then patient is in no respiratory symptoms Continue droplet isolation (3) Hypokalemia Status: Resolved Problem Text: CMP is still pending, if the potassium is low, will correct accordingly (4) Hypertension Status: Acute Problem Text: Continue home meds (5) Abnormal liver enzymes Status: Acute Problem Text: Abnormal liver enzymes, most likely secondary to flu virus . I will send out while cultures as well as acute hepatitis profile today Repeat labs in a.m. Plan/VTE VTE Prophylaxis Ordered?: Yes VS, I&O, 24H, Fishbone Vital Signs/I&O Vital Signs Date Time Temp Pulse Resp B/P (MAP) Pulse Ox O2 Delivery O2 Flow Rate FiO2 04/24/19 07:58 115 147/99 04/24/19 06:00 98.7 20 95 Room Air I&O- Last 24 Hours up to 6 AM 04/24/19 06:00 Intake Total 4400 ml Output Total 2200 ml Balance 2200 ml Laboratory Data 24H LABS Laboratory Tests 2 04/24/19 06:46: Immature Granulocyte % (Auto) 0.5, Neutrophils (%) (Auto) 77.9H, Lymphocytes (%) (Auto) 14.7L, Monocytes (%) (Auto) 6.2H, Eosinophils (%) (Auto) 0.5, Basophils (%) (Auto) 0.2, Neutrophils # (Auto) 10.3H, Lymphocytes # (Auto) 1.9, Monocytes # (Auto) 0.8, Eosinophils # (Auto) 0.1, Basophils # (Auto) 0.0, Nucleated Red Blood Cells % (auto) 0.0, Anion Gap 7L, Glomerular Filtration Rate > 60.0, Calcium Level 7.6L, Total Bilirubin 0.4, Aspartate Amino Transf (AST/SGOT) 916H, Alanine Aminotransferase (ALT/SGPT) 222H, Alkaline Phosphatase 54, Total Creatine Kinase [id number], Total Protein 7.0, Albumin 3.0L, Albumin/Globulin Ratio 0.75L CBC/BMP Laboratory Tests 04/24/19 06:46 RENETTA GREEN MD Apr 24, 2019 11:25
[2019-04-24 14:00] VITALS: BP 139/96
[2019-04-24 22:00] VITALS: BP 147/103
[2019-04-25] MEDS: NS 1,000 ML IV SCH ×4 (04:22→23:10)
[2019-04-25 06:00] VITALS: BP_SYST 136; BP_SYST 141; BP_DIAS 76; BP_DIAS 87
[2019-04-25 07:13] LABS: BASO % 0.3 % (0.0-1.0); EOS # 0.1 10^3/uL (0.0-0.5); EOS % 0.8 % (0.0-3.0); HEMOGLOBIN 15.1 g/dl (13.5-17.5); LYMPH # 2.7 10^3/uL (1.5-5.0); LYMPH % 19.4 % (24.0-44.0); MEAN CORPUSCULAR HEMOGLOBIN 28.9 pg (27.0-33.0); MEAN CORPUSCULAR HGB CONC 32.8 g/dl (32.0-36.5); MEAN CORPUSCULAR VOLUME 88.1 fl (80.0-96.0); MONO % 6.9 % (0.0-5.0); NEUTROPHILS % 71.4 % (36.0-66.0); PLATELET COUNT, AUTOMATED 355 10^3/uL (150-450); RED BLOOD COUNT 5.22 10^6/uL (4.30-6.10); WHITE BLOOD COUNT 14.1 10^3/uL (4.0-10.0)
[2019-04-25] MEDS: METOPROLOL SUCC *XL* 25MG TAB (TopROL *XL*) PO SCH (08:27)
[2019-04-25] MEDS: OSELTAMIVIR PHOSPHATE 75 MG CAP (TAMIFLU) PO SCH (08:27)
[2019-04-25] MEDS: predniSONE 10 MG TAB PO SCH (08:27)
[2019-04-25] MEDS: amLODIPine 10 MG TAB PO SCH (08:28)
[2019-04-25 08:51] LABS: ALBUMIN 2.9 GM/DL (3.2-5.2); ALT/SGPT 302 U/L (12-78); BILIRUBIN,TOTAL 0.4 MG/DL (0.2-1.0); BLOOD UREA NITROGEN 16 MG/DL (7-18); CARBON DIOXIDE LEVEL 24 MEQ/L (21-32); CHLORIDE LEVEL 107 MEQ/L (98-107); CPK CREATINE PHOSPHOKINASE 322000 U/L (39-308); CREATININE FOR GFR 0.66 MG/DL (0.70-1.30); GLOMERULAR FILTRATION RATE > 60.0 (>60); GLUCOSE, FASTING 119 MG/DL (70-100); POTASSIUM SERUM 4.8 MEQ/L (3.5-5.1); SODIUM LEVEL 138 MEQ/L (136-145); TOTAL PROTEIN 6.9 GM/DL (6.4-8.2)
--- NOTE | 2019-04-25 11:17 | IPNPDOC ---
Subjective Date Seen The patient was seen on 04/25/19. Subjective Chief Complaint/HPI Patient complaining of some leg pain on ambulation. Otherwise is ambulatory and offers no other complaints. As per patient, his urine is still dark but not read General: Denies: ROS Unobtainable, Chills, Night Sweats, Fatigue, Malaise, Normal Appetite, Other Symptoms Constitutional: Denies: Chills, Fever, Malaise, Night Sweats, Weakness, Fatigue, Weight Loss, Lethargy, Other Pulmonary: Denies: Dyspnea, Cough, Pleuritic Chest Pain, Other Symptoms Cardiovascular: Denies: Chest Pain, Palpitations, Orthopnea, Paroxysmal Noc. Dyspnea, Edema, Lt Headedness, Other Symptoms Gastrointestinal: Denies: Nausea, Vomiting, Abdominal Pain, Diarrhea, Constipation, Melena, Hematochezia, Other Symptoms Musculoskeletal: Reports: Other Symptoms ( bilateral leg pain) Neurological: Denies: Weakness, Numbness, Incoordination, Change in speech, Confusion, Seizures, Other Symptoms Objective Physical Examination ENT Exam: Positive: Atraumatic, Mucous membr. moist/pink Neck Exam: Positive: Supple Chest Exam: Positive: Clear to auscultation Heart Exam: Positive: Rate Normal, Normal S1, Normal S2 Abdomen Exam: Positive: Normal bowel sounds, Soft Extremity Exam: Positive: Normal pulses Skin Exam: Positive: Nl turgor and temperature Assessment /Plan Problems (1) Rhabdomyolysis Status: Acute Problem Text: The peak as are still extremely very high with increasing number every day, etiology unknown, most likely his unidentified myopathy secondary to probably viral infection Will DC Tamiflu as he has received it for 5 days for influenza B Viral cultures and hepatitis profile has been ordered, which are still pending secondary to elevated LFTs Patient is clinically stable. Will continue IV fluids normal saline 150 mL per hour Continue monitoring CPKs and clinical status If the CPK continues to keep rising, then we will think about wearing patient to a facility, ehere they have rheumatology oncology consultant available In the meantime, patient is been started on prednisone 30 mg by mouth daily (2) Influenza B Status: Acute Problem Text: She is completely asymptomatic at this time DC Tamiflu DC droplet isolation (3) Hypokalemia Status: Resolved Problem Text: CMP is still pending, if the potassium is low, will correct accordingly (4) Hypertension Status: Acute Problem Text: Continue home meds (5) Abnormal liver enzymes Status: Acute Problem Text: Most likely secondary to viral infection including flu Is a slight bump in the LFTs again today Acute hepatitis profile is pending Viral cultures are pending Supportive care Monitor LFTs Plan/VTE VTE Prophylaxis Ordered?: Yes VS, I&O, 24H, Fishbone Vital Signs/I&O Vital Signs Date Time Temp Pulse Resp B/P (MAP) Pulse Ox O2 Delivery O2 Flow Rate FiO2 04/25/19 08:27 114 144/104 04/25/19 06:00 98.1 18 96 Room Air I&O- Last 24 Hours up to 6 AM 04/25/19 06:00 Intake Total 5060 ml Output Total 3600 ml Balance 1460 ml Laboratory Data 24H LABS Laboratory Tests 2 04/24/19 12:20: 04/25/19 06:36: Immature Granulocyte % (Auto) 1.2, Neutrophils (%) (Auto) 71.4H, Lymphocytes (%) (Auto) 19.4L, Monocytes (%) (Auto) 6.9H, Eosinophils (%) (Auto) 0.8, Basophils (%) (Auto) 0.3, Neutrophils # (Auto) 10.0H, Lymphocytes # (Auto) 2.7, Monocytes # (Auto) 1.0H, Eosinophils # (Auto) 0.1, Basophils # (Auto) 0.0, Nucleated Red Blood Cells % (auto) 0.0, Anion Gap 7L, Glomerular Filtration Rate > 60.0, Mendez cium Level 8.0L, Total Bilirubin 0.4, Aspartate Amino Transf (AST/SGOT) 935H, Alanine Aminotransferase (ALT/SGPT) 302H, Alkaline Phosphatase 46, Total Creatine Kinase [id number], Total Protein 6.9, Albumin 2.9L, Albumin/Globulin Ratio 0.73L CBC/BMP Laboratory Tests 04/25/19 06:36 Microbiology Microbiology 04/24/19 Viral Culture, Received Pending RENETTA GREEN MD Apr 25, 2019 11:17
[2019-04-25 14:00] VITALS: BP 149/98
[2019-04-25 22:00] VITALS: BP 141/92
[2019-04-26] MEDS: NS 1,000 ML IV SCH ×3 (05:05→17:36)
[2019-04-26 06:00] VITALS: BP 133/67
[2019-04-26] MEDS: amLODIPine 10 MG TAB PO SCH (08:08)
[2019-04-26] MEDS: predniSONE 10 MG TAB PO SCH (08:09)
[2019-04-26] MEDS: METOPROLOL SUCC *XL* 25MG TAB (TopROL *XL*) PO SCH (08:09)
[2019-04-26 09:00] LABS: HEMATOCRIT 45.3 % (42.0-52.0); HEMOGLOBIN 14.6 g/dl (13.5-17.5); MEAN CORPUSCULAR HEMOGLOBIN 28.5 pg (27.0-33.0); MEAN CORPUSCULAR HGB CONC 32.2 g/dl (32.0-36.5); MEAN CORPUSCULAR VOLUME 88.3 fl (80.0-96.0); PLATELET COUNT, AUTOMATED 384 10^3/uL (150-450); RED BLOOD COUNT 5.13 10^6/uL (4.30-6.10); WHITE BLOOD COUNT 13.9 10^3/uL (4.0-10.0)
[2019-04-26 10:29] LABS: ALBUMIN 2.9 GM/DL (3.2-5.2); ALT/SGPT 354 U/L (12-78); BILIRUBIN,TOTAL 0.5 MG/DL (0.2-1.0); BLOOD UREA NITROGEN 17 MG/DL (7-18); CALCIUM LEVEL 8.4 MG/DL (8.5-10.1); CARBON DIOXIDE LEVEL 26 MEQ/L (21-32); CHLORIDE LEVEL 108 MEQ/L (98-107); CPK CREATINE PHOSPHOKINASE 517300 U/L (39-308); CREATININE FOR GFR 0.74 MG/DL (0.70-1.30); GLOMERULAR FILTRATION RATE > 60.0 (>60); GLUCOSE, FASTING 116 MG/DL (70-100); POTASSIUM SERUM 4.7 MEQ/L (3.5-5.1); SODIUM LEVEL 139 MEQ/L (136-145); TOTAL PROTEIN 6.8 GM/DL (6.4-8.2)
--- NOTE | 2019-04-26 10:47 | IPNPDOC ---
Subjective Date Seen The patient was seen on 04/26/19. Subjective Chief Complaint/HPI Patient feels slightly better. He still has pain in his both legs General: Denies: ROS Unobtainable, Chills, Night Sweats, Fatigue, Malaise, Normal Appetite, Other Symptoms Pulmonary: Denies: Dyspnea, Cough, Pleuritic Chest Pain, Other Symptoms Cardiovascular: Denies: Chest Pain, Palpitations, Orthopnea, Paroxysmal Noc. Dyspnea, Edema, Lt Headedness, Other Symptoms Gastrointestinal: Denies: Nausea, Vomiting, Abdominal Pain, Diarrhea, Constipation, Melena, Hematochezia, Other Symptoms Musculoskeletal: Denies: Neck Pain, Back Pain, Shoulder Pain, Arm Pain, Hand Pain, Leg Pain, Foot Pain, Joint Pain, Muscle Pain, Spasms, Other Symptoms Neurological: Denies: Weakness, Numbness, Incoordination, Change in speech, Confusion, Seizures, Other Symptoms Objective Physical Examination ENT Exam: Positive: Atraumatic, Mucous membr. moist/pink Neck Exam: Positive: Supple Chest Exam: Positive: Clear to auscultation Heart Exam: Positive: Rate Normal, Normal S1, Normal S2 Abdomen Exam: Positive: Normal bowel sounds, Soft Extremity Exam: Positive: Normal pulses Skin Exam: Positive: Nl turgor and temperature Assessment /Plan Problems (1) Rhabdomyolysis Status: Acute Problem Text: The peak as are still extremely very high with increasing number every day, etiology unknown, most likely his unidentified myopathy secondary to probably viral infection Will DC Tamiflu as he has received it for 5 days for influenza B Viral cultures and hepatitis profile has been ordered, which are still pending secondary to elevated LFTs Patient is clinically stable. Will continue IV fluids normal saline 150 mL per hour Patient's CPK 517,300, AST 799, ALT 354, pubis count is slightly elevated to 13.9 Patient is afebrile. Still has a bilateral lower extremity pain We will try to contact [facility] to transfer patient for possible rheumatology consultation, awaiting callback In the meantime, continue present care (2) Influenza B Status: Acute Problem Text: She is completely asymptomatic at this time DC Tamiflu DC droplet isolation (3) Hypokalemia Status: Resolved Problem Text: CMP is still pending, if the potassium is low, will correct accordingly (4) Hypertension Status: Acute Problem Text: Continue home meds (5) Abnormal liver enzymes Status: Acute Problem Text: Most likely secondary to viral infection including flu His AST 799, ALT is 354 Acute hepatitis profile is still pending Viral cultures are still pending Supportive care Monitor LFTs Plan/VTE VTE Prophylaxis Ordered?: Yes VS, I&O, 24H, Fishbone Vital Signs/I&O Vital Signs Date Time Temp Pulse Resp B/P (MAP) Pulse Ox O2 Delivery O2 Flow Rate FiO2 04/26/19 08:08 107 128/92 04/26/19 06:00 98.7 20 98 Room Air I&O- Last 24 Hours up to 6 AM 04/26/19 06:00 Intake Total 4840 ml Output Total 3750 ml Balance 1090 ml Laboratory Data 24H LABS Laboratory Tests 2 04/26/19 08:43: Nucleated Red Blood Cells % (auto) 0.0, Anion Gap 5L, Glomerular Filtration Rate > 60.0, Calcium Level 8.4L, Total Bilirubin 0.5, Aspartate Amino Transf (AST/SGOT) 799H, Alanine Aminotransferase (ALT/SGPT) 354H, Alkaline Phosphatase 47, Total Creatine Kinase 524756R, Total Protein 6.8, Albumin 2.9L, Albumin/Globulin Ratio 0.74L CBC/BMP Laboratory Tests 04/26/19 08:43 Microbiology Microbiology 04/24/19 Viral Culture, Received Pending RENETTA GREEN MD Apr 26, 2019 10:47
[2019-04-26 11:27] LABS: HEPATITIS A ANTIBODY IGM NEGATIVE (NEGATIVE); HEPATITIS B CORE ANTIBODY IGM NEGATIVE (NEGATIVE); HEPATITIS B SURFACE ANTIGEN NEGATIVE (NEGATIVE); HEPATITIS C VIRUS ABY INDEX < 0.0 INDEX (<0.8)
[2019-04-26 14:00] VITALS: BP 134/97
--- NOTE | 2019-04-26 14:45 | DS.PDOC ---
Discharge Summary General Date of Admission Apr 23, 2019 at 11:03 Date of Discharge 04/26/19 Discharge Summary PROCEDURES PERFORMED DURING STAY: None. ADMITTING DIAGNOSES: 1. Rhabdomyolysis. DISCHARGE DIAGNOSES: 1. Rhabdomyolysis, acute myositis, influenza B infection. COMPLICATIONS/CHIEF COMPLAINT: Rhabdomyolysis. HISTORY OF PRESENT ILLNESS: This is a 38 years old male with a past medical history of hypertension on amlodipine and metoprolol. History of migraine headache. 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 Patient again presented with the chief complaints of muscle aches and pains, weakness, difficulty walking, flank pains since one day. As per patient, his both and child were sick with flu recently and often when he developed his symptom. Patient is being admitted for observation and IV hydration and we'll also req uest a flu screening. HOSPITAL COURSE: Pt was admitted with possible none specific. A myositis triggered by influenza B virus. 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 Previously he was admitted at the [facility] in [place] with similar symptoms and 2015 CPK are still extremely very high with increasing number every day, etiology unknown, most likely his unidentified myopathy secondary to probably viral infection Will DC Tamiflu as he has received it for 5 days for influenza B Viral cultures and hepatitis profile has been ordered, which are still pending secondary to elevated LFTs Patient is clinically stable. Will continue IV fluids normal saline 150 mL per hour Patient's CPK 517,300, AST 799, ALT 354, pubis count is slightly elevated to 13.9 Patient is afebrile. Still has a bilateral lower extremity pain [facility] has been called for possible transfer as patient requires rheumatology and neuromuscular consults which are not available at our hospital. Was the bed is available. They will call me back to transfer patient out , I discussed with patient and he understands and agrees with the transfer. DISCHARGE MEDICATIONS: Please see below. ALLERGIES: Please see below. PHYSICAL EXAMINATION ON DISCHARGE: VITAL SIGNS: Please see below. GENERAL: Within normal limits HEENT: PERRLA. Extraocular muscles intact NECK: Supple CARDIOVASCULAR EXAMINATION: S1, S2, regular RESPIRATORY EXAMINATION: Clear to A&P ABDOMINAL EXAMINATION: Benign EXTREMITIES: No clubbing, cyanosis, edema SKIN: Normal NEUROLOGICAL EXAMINATION: No focal motor sensory deficit PSYCHIATRIC EXAMINATION: Normal LABORATORY DATA: Please see below. IMAGING: Not applicable PROGNOSIS: None known ACTIVITY: As tolerated. DIET: As tolerated DISCHARGE PLAN: Transferred to tertiary care facility DISPOSITION: . Transportation care facility DISCHARGE INSTRUCTIONS: 1. As per discharge instructions. ITEMS TO FOLLOWUP ON ON OUTPATIENT: 1. As per tertiary care facility. DISCHARGE CONDITION: Stable. TIME SPENT ON DISCHARGE:35 minutes. Vital Signs/I&Os Vital Signs Date Time Temp Pulse Resp B/P (MAP) Pulse Ox O2 Delivery O2 Flow Rate FiO2 04/26/19 08:08 107 128/92 04/26/19 06:00 98.7 20 98 Room Air I&O- Last 24 Hours up to 6 AM 04/26/19 06:00 Intake Total 4840 ml Output Total 3750 ml Balance 1090 ml Laboratory Data Labs 24H Laboratory Tests 2 04/26/19 08:43: Nucleated Red Blood Cells % (auto) 0.0, Anion Gap 5L, Glomerular Filtration Rate > 60.0, Calcium Level 8.4L, Total Bilirubin 0.5, Aspartate Amino Transf (AST/SGOT) 799H, Alanine Aminotransferase (ALT/SGPT) 354H, Alkaline Phosphatase 47, Total Creatine Kinase 344203A, Total Protein 6.8, Albumin 2.9L, Albumin/Globulin Ratio 0.74L CBC/BMP Laboratory Tests 04/26/19 08:43 Microbiology Microbiology 04/24/19 Viral Culture, Received Pending Discharge Medications Scheduled Amlodipine Besylate (Amlodipine Besylate) 10 Mg Tablet, 10 MG PO DAILY, (Reported) Metoprolol Succinate (Metoprolol Succinate) 25 Mg Tab.er.24h, 25 MG PO DAILY, (Reported) Allergies Coded Allergies: No Known Allergies (Verified , 05/18/08) RENETTA GREEN MD Apr 26, 2019 14:45
[2019-04-26 22:00] VITALS: BP 138/99
[2019-04-27] MEDS: NS 1,000 ML IV SCH ×4 (04:55→21:45)
[2019-04-27 06:00] VITALS: BP 131/84
[2019-04-27 06:18] LABS: BASO # 0.1 10^3/uL (0.0-0.2); BASO % 0.5 % (0.0-1.0); EOS # 0.1 10^3/uL (0.0-0.5); EOS % 0.7 % (0.0-3.0); HEMATOCRIT 42.5 % (42.0-52.0); HEMOGLOBIN 13.9 g/dl (13.5-17.5); LYMPH # 2.7 10^3/uL (1.5-5.0); MEAN CORPUSCULAR HEMOGLOBIN 29.1 pg (27.0-33.0); MEAN CORPUSCULAR HGB CONC 32.7 g/dl (32.0-36.5); MEAN CORPUSCULAR VOLUME 89.1 fl (80.0-96.0); MONO % 7.8 % (0.0-5.0); NEUTROPHILS # 8.8 10^3/uL (1.5-8.5); NEUTROPHILS % 67.8 % (36.0-66.0); PLATELET COUNT, AUTOMATED 368 10^3/uL (150-450); RED BLOOD COUNT 4.77 10^6/uL (4.30-6.10)
[2019-04-27 08:30] VITALS: BP 126/78
[2019-04-27 08:49] LABS: ALBUMIN 2.7 GM/DL (3.2-5.2); ALT/SGPT 342 U/L (12-78); BILIRUBIN,TOTAL 0.5 MG/DL (0.2-1.0); BLOOD UREA NITROGEN 18 MG/DL (7-18); CALCIUM LEVEL 8.6 MG/DL (8.5-10.1); CARBON DIOXIDE LEVEL 26 MEQ/L (21-32); CHLORIDE LEVEL 107 MEQ/L (98-107); CPK CREATINE PHOSPHOKINASE 124600 U/L (39-308); CREATININE FOR GFR 0.74 MG/DL (0.70-1.30); GLOMERULAR FILTRATION RATE > 60.0 (>60); GLUCOSE, FASTING 136 MG/DL (70-100); POTASSIUM SERUM 4.6 MEQ/L (3.5-5.1); SODIUM LEVEL 137 MEQ/L (136-145); TOTAL PROTEIN 6.3 GM/DL (6.4-8.2)
[2019-04-27] MEDS: amLODIPine 10 MG TAB PO SCH (09:08)
[2019-04-27] MEDS: METOPROLOL SUCC *XL* 25MG TAB (TopROL *XL*) PO SCH (09:08)
[2019-04-27] MEDS: predniSONE 10 MG TAB PO SCH (09:09)
--- NOTE | 2019-04-27 11:45 | IPNPDOC ---
Subjective Date Seen The patient was seen on 04/27/19. Subjective Chief Complaint/HPI Seen and examined at bedside, no specific complaints today, denies fever/chills, N/V/D, abdominal pain, myalgias, fatigue. General: Reports: Normal Appetite; Denies: Chills, Night Sweats, Fatigue, Malaise Constitutional: Denies: Chills, Fever, Night Sweats Eyes: Denies: Pain, Vision change ENT: Denies: Head Aches, Ear Pain, Dysphagia Skin: Denies: Rash, Lesions, Breakdown Pulmonary: Denies: Dyspnea, Cough Cardiovascular: Denies: Chest Pain, Palpitations, Orthopnea, Paroxysmal Noc. Dyspnea, Lt Headedness Gastrointestinal: Denies: Nausea, Vomiting, Abdominal Pain, Diarrhea, Constipation Genitourinary: Denies: Dysuria, Frequency, Incontinence, Retention Hematologic: Denies: Bruising, Bleeding Excessively Musculoskeletal: Denies: Neck Pain, Back Pain, Joint Pain, Muscle Pain, Spasms Neurological: Denies: Weakness, Numbness, Change in speech, Confusion Psych: Reports: Mood Normal; Denies: Depression, Memory Issues Objective Physical Examination General Exam: Positive: Alert, No Acute Distress Eye Exam: Positive: PERRLA, Conjunctiva & lids normal, EOMI; Negative: Sclera icteric ENT Exam: Positive: Atraumatic, Mucous membr. moist/pink Neck Exam: Positive: Supple Chest Exam: Positive: Clear to auscultation Heart Exam: Positive: Rate Normal, Normal S1, Normal S2 Telemetry: Positive: No significant arrhythmia Abdomen Exam: Positive: Normal bowel sounds, Soft Male Exam: Positive: Normal Genital Exam Extremity Exam: Positive: Normal pulses Skin Exam: Positive: Nl turgor and temperature Neuro Exam: Positive: Normal Gait, Normal Speech, Cranial Nerves 3-12 NL, Reflexes 2+ Psych Exam: Positive: Mental status NL, Mood NL, Oriented x 3 Assessment /Plan Assessment 1. rhabdomyolysis - CPK has improved significantly today, [id number]. - continue IVF, monitor electrolytes and renal function. - patient has a history of unknown variety of myositis, this is his third incidence with similar presentation. - [facility] called for [facility] transfer as patient requires rheumatology and neuromuscular consults which are not available at out facility. Patient to be transferred when bed is available. 2. influenza B - patient completed tamiflu x 5 days. - off droplet precautions. 3. hypertension - continue amlodipine, metoprolol. 4. elevated LFT's - slight improvement today, monitor. - hepatitis profile negative. Plan/VTE VTE Prophylaxis Ordered?: Yes VS, I&O, 24H, Fishbone Vital Signs/I&O Vital Signs Date Time Temp Pulse Resp B/P (MAP) Pulse Ox O2 Delivery O2 Flow Rate FiO2 04/27/19 08:30 97.4 106 20 126/78 (94) 94 Room Air I&O- Last 24 Hours up to 6 AM 04/27/19 06:00 Intake Total 2220 ml Output Total 4850 ml Balance -2630 ml Laboratory Data 24H LABS Laboratory Tests 2 04/27/19 05:53: Immature Granulocyte % (Auto) 2.2, Neutrophils (%) (Auto) 67.8H, Lymphocytes (%) (Auto) 21.0L, Monocytes (%) (Auto) 7.8H, Eosinophils (%) (Auto) 0.7, Basophils ( %) (Auto) 0.5, Neutrophils # (Auto) 8.8H, Lymphocytes # (Auto) 2.7, Monocytes # (Auto) 1.0H, Eosinophils # (Auto) 0.1, Basophils # (Auto) 0.1, Nucleated Red Blood Cells % (auto) 0.0, Anion Gap 4L, Glomerular Filtration Rate > 60.0, Calcium Level 8.6, Total Bilirubin 0.5, Aspartate Amino Transf (AST/SGOT) 551H, Alanine Aminotransferase (ALT/SGPT) 342H, Alkaline Phosphatase 59, Total Creatine Kinase 221454#H, Total Protein 6.3L, Albumin 2.7L, Albumin/Globulin Ratio 0.75L CBC/BMP Laboratory Tests 04/27/19 05:53 Microbiology Microbiology 04/24/19 Viral Culture, Received Pending MICHAEL URIBE MD Apr 27, 2019 11:45
[2019-04-27 13:26] VITALS: BP 156/97
[2019-04-27 22:00] VITALS: BP 150/101
[2019-04-28 03:14] VITALS: BP 127/82
[2019-04-28] MEDS: NS 1,000 ML IV SCH ×3 (04:54→18:23)
[2019-04-28 06:00] VITALS: BP 132/84
[2019-04-28 08:29] LABS: HEMATOCRIT 39.4 % (42.0-52.0); HEMOGLOBIN 12.9 g/dl (13.5-17.5); MEAN CORPUSCULAR HEMOGLOBIN 29.4 pg (27.0-33.0); MEAN CORPUSCULAR HGB CONC 32.7 g/dl (32.0-36.5); MEAN CORPUSCULAR VOLUME 89.7 fl (80.0-96.0); PLATELET COUNT, AUTOMATED 328 10^3/uL (150-450); RED BLOOD COUNT 4.39 10^6/uL (4.30-6.10)
[2019-04-28 09:01] LABS: ALBUMIN 2.5 GM/DL (3.2-5.2); ALT/SGPT 329 U/L (12-78); BILIRUBIN,TOTAL 0.3 MG/DL (0.2-1.0); BLOOD UREA NITROGEN 13 MG/DL (7-18); CALCIUM LEVEL 8.1 MG/DL (8.5-10.1); CARBON DIOXIDE LEVEL 23 MEQ/L (21-32); CHLORIDE LEVEL 109 MEQ/L (98-107); GLOMERULAR FILTRATION RATE > 60.0 (>60); GLUCOSE, FASTING 165 MG/DL (70-100); POTASSIUM SERUM 4.4 MEQ/L (3.5-5.1); SODIUM LEVEL 140 MEQ/L (136-145); TOTAL PROTEIN 5.8 GM/DL (6.4-8.2)
[2019-04-28] MEDS: amLODIPine 10 MG TAB PO SCH (10:01)
[2019-04-28] MEDS: METOPROLOL SUCC *XL* 25MG TAB (TopROL *XL*) PO SCH (10:02)
[2019-04-28] MEDS: predniSONE 10 MG TAB PO SCH (10:02)
--- NOTE | 2019-04-28 11:04 | IPNPDOC ---
Subjective Date Seen The patient was seen on 04/28/19. Subjective Chief Complaint/HPI seen and examined at bedside, no specific complaints, eating and drinking well. General: Reports: Normal Appetite; Denies: Chills, Night Sweats, Fatigue, Malaise Constitutional: Denies: Chills, Fever, Night Sweats Eyes: Denies: Pain, Vision change ENT: Denies: Head Aches, Ear Pain, Dysphagia Skin: Denies: Rash, Lesions, Breakdown Pulmonary: Denies: Dyspnea, Cough Cardiovascular: Denies: Chest Pain, Palpitations, Orthopnea, Paroxysmal Noc. Dyspnea, Lt Headedness Gastrointestinal: Denies: Nausea, Vomiting, Abdominal Pain, Diarrhea, Constipation Genitourinary: Denies: Dysuria, Frequency, Incontinence, Retention Hematologic: Denies: Bruising, Bleeding Excessively Musculoskeletal: Denies: Neck Pain, Back Pain, Joint Pain, Muscle Pain, Spasms Neurological: Denies: Weakness, Numbness, Change in speech, Confusion Psych: Reports: Mood Normal; Denies: Depression, Memory Issues Objective Physical Examination General Exam: Positive: Alert, No Acute Distress Eye Exam: Positive: PERRLA, Conjunctiva & lids normal, EOMI; Negative: Sclera icteric ENT Exam: Positive: Atraumatic, Mucous membr. moist/pink Neck Exam: Positive: Supple Chest Exam: Positive: Clear to auscultation Heart Exam: Positive: Rate Normal, Normal S1, Normal S2 Telemetry: Positive: No significant arrhythmia Abdomen Exam: Positive: Normal bowel sounds, Soft Male Exam: Positive: Normal Genital Exam Extremity Exam: Positive: Normal pulses Skin Exam: Positive: Nl turgor and temperature Neuro Exam: Positive: Normal Gait, Normal Speech, Cranial Nerves 3-12 NL, Reflexes 2+ Psych Exam: Positive: Mental status NL, Mood NL, Oriented x 3 Assessment /Plan Assessment 1. rhabdomyolysis - CPK pending today. - continue IVF, monitor electrolytes and renal function. - patient has a history of unknown variety of myositis, this is his third inci dence with similar presentation. - [facility] has been called for possible transfer as patient requires rheumatology and neuromuscular consults which are not available at out facility. Patient to be transferred when bed is available. 2. influenza B - patient completed tamiflu x 5 days. - off droplet precautions. 3. hypertension - continue amlodipine, metoprolol. 4. elevated LFT's - monitor. - hepatitis profile negative. Plan/VTE VTE Prophylaxis Ordered?: Yes VS, I&O, 24H, Fishbone Vital Signs/I&O Vital Signs Date Time Temp Pulse Resp B/P (MAP) Pulse Ox O2 Delivery O2 Flow Rate FiO2 04/28/19 10:02 110 134/88 04/28/19 06:00 97.4 18 96 Room Air I&O- Last 24 Hours up to 6 AM 04/28/19 06:00 Intake Total 3240 ml Output Total 3650 ml Balance -410 ml Laboratory Data 24H LABS Laboratory Tests 2 04/28/19 08:14: Nucleated Red Blood Cells % (auto) 0.0, Anion Gap 8, Glomerular Filtration Rate > 60.0, Calcium Level 8.1L, Total Bilirubin 0.3, Aspartate Amino Transf ( AST/SGOT) 382H, Alanine Aminotransferase (ALT/SGPT) 329H, Alkaline Phosphatase 57, Total Protein 5.8L, Albumin 2.5L, Albumin/Globulin Ratio 0.76L CBC/BMP Laboratory Tests 04/28/19 08:14 Microbiology Microbiology 04/24/19 Viral Culture, Received Pending MICHAEL URIBE MD Apr 28, 2019 11:04
[2019-04-28 14:57] VITALS: BP 131/87
[2019-04-28 16:31] LABS: CPK CREATINE PHOSPHOKINASE 71502 U/L (39-308)
[2019-04-29] MEDS: NS 1,000 ML IV SCH ×4 (00:44→20:52)
[2019-04-29 06:00] VITALS: BP 120/83
[2019-04-29 07:24] LABS: MEAN CORPUSCULAR HEMOGLOBIN 29.5 pg (27.0-33.0); MEAN CORPUSCULAR HGB CONC 33.3 g/dl (32.0-36.5); MEAN CORPUSCULAR VOLUME 88.6 fl (80.0-96.0); PLATELET COUNT, AUTOMATED 354 10^3/uL (150-450); WHITE BLOOD COUNT 14.7 10^3/uL (4.0-10.0)
[2019-04-29 08:54] LABS: BLOOD UREA NITROGEN 13 MG/DL (7-18); CALCIUM LEVEL 8.2 MG/DL (8.5-10.1); CARBON DIOXIDE LEVEL 27 MEQ/L (21-32); CHLORIDE LEVEL 108 MEQ/L (98-107); CPK CREATINE PHOSPHOKINASE 31200 U/L (39-308); GLOMERULAR FILTRATION RATE > 60.0 (>60); GLUCOSE, FASTING 111 MG/DL (70-100); SODIUM LEVEL 141 MEQ/L (136-145)
[2019-04-29] MEDS: amLODIPine 10 MG TAB PO SCH (09:49)
[2019-04-29] MEDS: predniSONE 10 MG TAB PO SCH (09:49)
[2019-04-29] MEDS: METOPROLOL SUCC *XL* 25MG TAB (TopROL *XL*) PO SCH (09:50)
--- NOTE | 2019-04-29 12:29 | IPNPDOC ---
Subjective Date Seen The patient was seen on 04/29/19. Subjective Chief Complaint/HPI Seen and examined at bedside, no specific complaints today. General: Reports: Normal Appetite; Denies: Chills, Night Sweats, Fatigue, Malaise Constitutional: Denies: Chills, Fever, Night Sweats Eyes: Denies: Pain, Vision change ENT: Denies: Head Aches, Ear Pain, Dysphagia Skin: Denies: Rash, Lesions, Breakdown Pulmonary: Denies: Dyspnea, Cough Cardiovascular: Denies: Chest Pain, Palpitations, Orthopnea, Paroxysmal Noc. Dyspnea, Lt Headedness Gastrointestinal: Denies: Nausea, Vomiting, Abdominal Pain, Diarrhea, Constipation Genitourinary: Denies: Dysuria, Frequency, Incontinence, Retention Hematologic: Denies: Bruising, Bleeding Excessively Musculoskeletal: Denies: Neck Pain, Back Pain, Joint Pain, Muscle Pain, Spasms Neurological: Denies: Weakness, Numbness, Change in speech, Confusion Psych: Reports: Mood Normal; Denies: Depression, Memory Issues Objective Physical Examination General Exam: Positive: Alert, No Acute Distress Eye Exam: Positive: PERRLA, Conjunctiva & lids normal, EOMI; Negative: Sclera icteric ENT Exam: Positive: Atraumatic, Mucous membr. moist/pink Neck Exam: Positive: Supple Chest Exam: Positive: Clear to auscultation Heart Exam: Positive: Rate Normal, Normal S1, Normal S2 Telemetry: Positive: No significant arrhythmia Abdomen Exam: Positive: Normal bowel sounds, Soft Male Exam: Positive: Normal Genital Exam Extremity Exam: Positive: Normal pulses Skin Exam: Positive: Nl turgor and temperature Neuro Exam: Positive: Normal Gait, Normal Speech, Cranial Nerves 3-12 NL, Reflexes 2+ Psych Exam: Positive: Mental status NL, Mood NL, Oriented x 3 Assessment /Plan Assessment 1. [place] [address], improving daily. - continue IVF, monitor electrolytes and renal function. - patient has a history of unknown variety of myositis, this is his third incidence with similar presentation. - [facility] has been called for possible transfer as patient requires rheumatology and neuromuscular consults which are not available at out facility. Patient still not available but in light of dropping CPK daily will likely be outpatient workup on discharge. 2. influenza B - patient completed tamiflu x 5 days. - off droplet precautions. 3. hypertension - continue amlodipine, metoprolol. 4. elevated LFT's - monitor. - hepatitis profile negative. Plan/VTE VTE Prophylaxis Ordered?: Yes VS, I&O, 24H, Fishbone Vital Signs/I&O Vital Signs Date Time Temp Pulse Resp B/P (MAP) Pulse Ox O2 Delivery O2 Flow Rate FiO2 04/29/19 09:50 117 133/94 04/29/19 06:00 97.9 18 95 Room Air I&O- Last 24 Hours up to 6 AM 04/29/19 06:00 Intake Total 2460 ml Output Total 4400 ml Balance -1940 ml Laboratory Data 24H LABS Laboratory Tests 2 04/29/19 07:04: Nucleated Red Blood Cells % (auto) 0.0, Anion Gap 6L, Glomerular Filtration Rate > 60.0, Calcium Level 8.2L, Total Creatine Kinase 04514Y CBC/BMP Laboratory Tests 04/29/19 07:04 Microbiology Microbiology 04/24/19 Viral Culture, Received Pending MICHAEL URIBE MD Apr 29, 2019 12:29
[2019-04-29 14:41] VITALS: BP 134/95
[2019-04-29 20:00] VITALS: BP 135/95
[2019-04-30 05:47] VITALS: BP 106/74
[2019-04-30] MEDS: NS 1,000 ML IV SCH ×2 (06:11→12:04)
[2019-04-30 08:08] LABS: HEMATOCRIT 36.4 % (42.0-52.0); HEMOGLOBIN 12.1 g/dl (13.5-17.5); MEAN CORPUSCULAR HEMOGLOBIN 29.6 pg (27.0-33.0); MEAN CORPUSCULAR HGB CONC 33.2 g/dl (32.0-36.5); PLATELET COUNT, AUTOMATED 332 10^3/uL (150-450); RED BLOOD COUNT 4.09 10^6/uL (4.30-6.10)
[2019-04-30] MEDS: predniSONE 10 MG TAB PO SCH (08:18)
[2019-04-30 08:48] VITALS: BP 106/74
[2019-04-30] MEDS: amLODIPine 10 MG TAB PO SCH (08:48)
[2019-04-30] MEDS: METOPROLOL SUCC *XL* 25MG TAB (TopROL *XL*) PO SCH (08:48)
[2019-04-30 09:45] LABS: BLOOD UREA NITROGEN 15 MG/DL (7-18); CALCIUM LEVEL 7.9 MG/DL (8.5-10.1); CARBON DIOXIDE LEVEL 28 MEQ/L (21-32); CHLORIDE LEVEL 109 MEQ/L (98-107); CPK CREATINE PHOSPHOKINASE 16800 U/L (39-308); CREATININE FOR GFR 0.59 MG/DL (0.70-1.30); GLOMERULAR FILTRATION RATE > 60.0 (>60); GLUCOSE, FASTING 113 MG/DL (70-100); POTASSIUM SERUM 3.6 MEQ/L (3.5-5.1); SODIUM LEVEL 142 MEQ/L (136-145)
--- NOTE | 2019-04-30 09:59 | IPNPDOC ---
Subjective Date Seen The patient was seen on 04/30/19. Subjective Chief Complaint/HPI seen and examined at bedside, doing well today, no specific complaints. General: Reports: Normal Appetite; Denies: Chills, Night Sweats, Fatigue, Malaise Constitutional: Denies: Chills, Fever, Night Sweats Eyes: Denies: Pain, Vision change ENT: Denies: Head Aches, Ear Pain, Dysphagia Skin: Denies: Rash, Lesions, Breakdown Pulmonary: Denies: Dyspnea, Cough Cardiovascular: Denies: Chest Pain, Palpitations, Orthopnea, Paroxysmal Noc. Dyspnea, Lt Headedness Gastrointestinal: Denies: Nausea, Vomiting, Abdominal Pain, Diarrhea, Constipation Genitourinary: Denies: Dysuria, Frequency, Incontinence, Retention Hematologic: Denies: Bruising, Bleeding Excessively Musculoskeletal: Denies: Neck Pain, Back Pain, Joint Pain, Muscle Pain, Spasms Neurological: Denies: Weakness, Numbness, Change in speech, Confusion Psych: Reports: Mood Normal; Denies: Depression, Memory Issues Objective Physical Examination General Exam: Positive: Alert, No Acute Distress Eye Exam: Positive: PERRLA, Conjunctiva & lids normal, EOMI; Negative: Sclera icteric ENT Exam: Positive: Atraumatic, Mucous membr. moist/pink Neck Exam: Positive: Supple Chest Exam: Positive: Clear to auscultation Heart Exam: Positive: Rate Normal, Normal S1, Normal S2 Telemetry: Positive: No significant arrhythmia Abdomen Exam: Positive: Normal bowel sounds, Soft Male Exam: Positive: Normal Genital Exam Extremity Exam: Positive: Normal pulses Skin Exam: Positive: Nl turgor and temperature Neuro Exam: Positive: Normal Gait, Normal Speech, Cranial Nerves 3-12 NL, Reflexes 2+ Psych Exam: Positive: Mental status NL, Mood NL, Oriented x 3 Assessment /Plan Assessment 1. [place] [address], improving daily. - continue IVF, monitor electrolytes and renal function. - patient has a history of unknown variety of myositis, this is his third in cidence with similar presentation. - [facility] bed available but with dropping CPK and improvement overall they do not feel he is appropriate for emergent transfer at this time, will need outpatient follow up with repeat muscle biopsy. Discussed this in detail with the patient and he verbalizes understanding. 2. influenza B - patient completed tamiflu x 5 days. - off droplet precautions. 3. hypertension - continue amlodipine, metoprolol. 4. elevated LFT's - monitor. - hepatitis profile negative. Plan/VTE VTE Prophylaxis Ordered?: Yes VS, I&O, 24H, Fishbone Vital Signs/I&O Vital Signs Date Time Temp Pulse Resp B/P (MAP) Pulse Ox O2 Delivery O2 Flow Rate FiO2 04/30/19 08:48 106 106/74 04/30/19 05:47 96.5 18 97 Room Air I&O- Last 24 Hours up to 6 AM 04/30/19 06:00 Intake Total 2500 ml Output Total 5400 ml Balance -2900 ml Laboratory Data 24H LABS Laboratory Tests 2 04/30/19 07:44: Nucleated Red Blood Cells % (auto) 0.0, Anion Gap 5L, Glomerular Filtration Rate > 60.0, Calcium Level 7.9L, Total Creatine Kinase 44733D CBC/BMP Laboratory Tests 04/30/19 07:44 Microbiology Microbiology 04/24/19 Viral Culture, Received Pending MICHAEL URIBE MD Apr 30, 2019 09:59
[2019-04-30 14:36] VITALS: BP 123/92
[2019-04-30 22:00] VITALS: BP 122/90
[2019-05-01] MEDS: NS 1,000 ML IV SCH ×3 (00:19→05:37)
[2019-05-01 06:49] VITALS: BP 117/82
[2019-05-01] MEDS: predniSONE 10 MG TAB PO SCH (07:58)
[2019-05-01] MEDS: amLODIPine 10 MG TAB PO SCH (08:09)
[2019-05-01] MEDS: METOPROLOL SUCC *XL* 25MG TAB (TopROL *XL*) PO SCH (08:09)
--- NOTE | 2019-05-01 10:38 | DS.PDOC ---
Discharge Summary General Date of Admission Apr 23, 2019 at 11:03 Date of Discharge 05/01/19 Discharge Summary PROCEDURES PERFORMED DURING STAY: [None]. ADMITTING DIAGNOSES: 1. rhabdomyolysis DISCHARGE DIAGNOSES: 1. rhabdomyolysis COMPLICATIONS/CHIEF COMPLAINT: Rhabdomyolysis. HISTORY OF PRESENT ILLNESS: Please refer to for detailed HPI. HOSPITAL COURSE: Patient was admitted and treated for the following conditions: 1. rhabdomyolysis - CPK on admission [id number], started on aggressive fluid hydration, CPK daily. - patients electrolytes and renal function remained stable. - history of unknown variety of myositis, this is his third incidence with galina lar presentation. - Initial plan was for transfer to [facility] when bed became available but with dropping CPK and improvement overall they did not feel he is appropriate for emergent transfer, will need outpatient follow up with repeat muscle biopsy. - CPK 9088 today, cleared medically for discharge home, patient to follow up with PCP and referral for repeat muscle biopsy. 2. elevated LFT's - improved. - hepatitis profile negative. DISCHARGE MEDICATIONS: Please see below. ALLERGIES: Please see below. PHYSICAL EXAMINATION ON DISCHARGE: VITAL SIGNS: Please see below. GENERAL: AAO x 3, NAD. HEENT: NCAT, anicteric sclera, PERRLA/EOMI NECK: supple, no JVD, no thyromegaly CARDIOVASCULAR EXAMINATION: NS1S2, regular, no murmurs/rubs RESPIRATORY EXAMINATION: CTA b/l, no wheezing, rales, rhonchi. ABDOMINAL EXAMINATION: NT/ND, positive bowel sounds, no masses EXTREMITIES: no cyanosis, clubbing, edema SKIN: warm, no rashes, NEUROLOGICAL EXAMINATION: AAO x 3, no motor/sensory deficits, PSYCHIATRIC EXAMINATION: calm, cooperative, normal affect. LABORATORY DATA: Please see below. PROGNOSIS: good ACTIVITY: [As tolerated]. DIET: regular DISPOSITION: home ITEMS TO FOLLOWUP ON ON OUTPATIENT: 1. none DISCHARGE CONDITION: [Stable]. TIME SPENT ON DISCHARGE: Greater than [30] minutes. Vital Signs/I&Os Vital Signs Date Time Temp Pulse Resp B/P (MAP) Pulse Ox O2 Delivery O2 Flow Rate FiO2 05/01/19 06:49 97.1 102 18 117/82 (94) 97 Room Air I&O- Last 24 Hours up to 6 AM 05/01/19 06:00 Intake Total 6085 ml Output Total 5350 ml Balance 735 ml Laboratory Data Labs 24H Laboratory Tests 2 05/01/19 07:38: Total Creatine Kinase 9086H Microbiology Microbiology 04/24/19 Viral Culture, Received Pending Discharge Medications Scheduled Amlodipine Besylate (Amlodipine Besylate) 10 Mg Tablet, 10 MG PO DAILY, (Reported) Metoprolol Succinate (Metoprolol Succinate) 25 Mg Tab.er.24h, 25 MG PO DAILY, (Reported) Prednisone (Prednisone) 10 Mg Tablet, 10 MG PO DAILY Take 2TABS daily x 3 days then 1TAB daily x 3 days. Allergies Coded Allergies: No Known Allergies (Verified , 05/18/08) MICHAEL URIBE MD May 01, 2019 10:38
[2019-05-01] MEDS ORDERED: PRED10TA2 PO (11:27)
--- NOTE | 2019-05-01 11:29 | DS.PDOC ---
Discharge Summary General Date of Admission Apr 23, 2019 at 11:03 Discharge Summary PROCEDURES PERFORMED DURING STAY: [None]. ADMITTING DIAGNOSES: 1. . DISCHARGE DIAGNOSES: 1. . COMPLICATIONS/CHIEF COMPLAINT: Rhabdomyolysis. HISTORY OF PRESENT ILLNESS: . HOSPITAL COURSE: prednisone taper pcp f/u for muscle biopsy DISCHARGE MEDICATIONS: Please see below. ALLERGIES: Please see below. PHYSICAL EXAMINATION ON DISCHARGE: VITAL SIGNS: Please see below. GENERAL: HEENT: NECK: CARDIOVASCULAR EXAMINATION: RESPIRATORY EXAMINATION: ABDOMINAL EXAMINATION: EXTREMITIES: SKIN: NEUROLOGICAL EXAMINATION: PSYCHIATRIC EXAMINATION: LABORATORY DATA: Please see below. IMAGING: PROGNOSIS: ACTIVITY: [As tolerated]. DIET: DISCHARGE PLAN: DISPOSITION: . DISCHARGE INSTRUCTIONS: 1. . ITEMS TO FOLLOWUP ON ON OUTPATIENT: 1. . DISCHARGE CONDITION: [Stable]. TIME SPENT ON DISCHARGE: Greater than minutes. Vital Signs/I&Os Vital Signs Date Time Temp Pulse Resp B/P (MAP) Pulse Ox O2 Delivery O2 Flow Rate FiO2 05/01/19 06:49 97.1 102 18 117/82 (94) 97 Room Air I&O- Last 24 Hours up to 6 AM 05/01/19 05:59 Intake Total 4285 ml Output Total 5350 ml Balance -1065 ml Laboratory Data Labs 24H Laboratory Tests 2 05/01/19 07:38: Total Creatine Kinase 9086H Microbiology Microbiology 04/24/19 Viral Culture, Received Pending Discharge Medications Scheduled Amlodipine Besylate (Amlodipine Besylate) 10 Mg Tablet, 10 MG PO DAILY, (Reported) Metoprolol Succinate (Metoprolol Succinate) 25 Mg Tab.er.24h, 25 MG PO DAILY, (Reported) Prednisone (Prednisone) 10 Mg Tablet, 10 MG PO DAILY Take 2TABS daily x 3 days then 1TAB daily x 3 days. Allergies Coded Allergies: No Known Allergies (Verified , 05/18/08) MICHAEL URIBE MD May 01, 2019 11:29
== END 2019-05-01 12:35 | disposition home or self-care (01) | DRG 351 ==
LOC: M ED 14:01 → M ED INP 14:02 → ENRESERV 19:14 → M MS5PR 19:50 → OBSVTOIN 04-23 11:03
PROVIDERS: ADMIT Internal Medicine; ATTEND Internal Medicine
DX: M62.82 Rhabdomyolysis (principal); I10 Essential (primary) hypertension; M60.9 Myositis, unspecified; G43.909 Migraine, unspecified, not intractable, without status migrainosus; J10.1 Influenza due to other identified influenza virus with other respiratory manifestations; E87.6 Hypokalemia; Z79.899 Other long term (current) drug therapy; R74.0 Nonspecific elevation of levels of transaminase and lactic acid dehydrogenase [LDH]